=== PATIENT | female | born 1990 | race Caucasian/White ===

== ENCOUNTER 2018-06-29 12:56 | Emergency (ER) | payer OTHER, SELFPAY ==
[2018-06-29 12:56] VITALS: BP 142/69; PULSE 116; RESP 17; TEMP 37; O2SAT 97; BMI 29.2
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
== END 2018-06-29 13:52 | disposition home or self-care (01) ==
PROVIDERS: Emergency Provider Emergency Medicine; Family Provider Family Medicine; PCP Family Medicine
DX: S06.0X0A Concussion without loss of consciousness, initial encounter (principal); M54.2 Cervicalgia; M54.5 Low back pain; M25.561 Pain in right knee; V43.52XA Car driver injured in collision with other type car in traffic accident, initial encounter; Y93.9 Activity, unspecified; Y92.9 Unspecified place or not applicable; Y99.9 Unspecified external cause status; E66.9 Obesity, unspecified
CPT/HCPCS: 99282

== ENCOUNTER → 2019-05-03 11:24 | Outpatient (CLI) | payer OTHER, SELFPAY | PROVIDERS: Family Provider Family Medicine; PCP Family Medicine; Visit Provider Family Medicine | DX: N20.0 Calculus of kidney (principal) | CPT/HCPCS: 87086; 87088 ==

== ENCOUNTER → 2019-06-10 13:48 | Outpatient (CLI) | payer OTHER, SELFPAY ==
[2019-06-10 15:04] LABS: Absolute Lymphocyte Count 1.61 X10^3/uL (0.83-4.51); Absolute Neutrophil Count 3.6 X10^3/uL (2.0-7.7); Basophil# 0.02 X10^3/uL; Basophil% 0.3 % (0-1); Eosinophil# 0.14 X10^3/uL; Eosinophils% 2.4 % (0-5); Hematocrit 39.8 % (37-47); Hemoglobin 13.2 g/dL (12.0-15.0); Lymphocyte # 1.61 X10^3/ul (4.0); Lymphocyte % 27.9 % (19-41); Mean Corp Hgb Conc 33.2 g/dL (32-36); Mean Corpuscular Hgb 29.7 pg (27.0-32.0); Mean Corpuscular Volume 89.6 fL (81-99); Mean Platelet Vol. 10.1 fl (6.2-12.0); Monocyte# 0.41 X10^3/uL; Monocyte% 7.1 % (0-10); NRBC Flagged by Analyzer 0 % (0-5); Neutrophil # 3.59 X10^3/uL (2.7-7.7); Neutrophil % 62.1 % (47-70); Platelet Count 240 K/mm3 (150-450); RBC Distribution Width CV 12.6 % (11.6-14.6); RBC Distribution Width SD 40.8 fl (35.1-43.9); Red Blood Count 4.44 M/mm3 (4.2-5.4); White Blood Count 5.8 K/mm3 (4.4-11.0)
[2019-06-10 15:18] LABS: Erythrocyte Sedimentation Rate 3 mm/hr (0-20)
[2019-06-10 15:31] LABS: Vitamin B12 485 pg/mL (211-911); Vitamin D,25 Hydroxy 15.7 ng/mL (29.95-100.01)
[2019-06-10 15:34] LABS: ALB/GLOB Ratio 1.3 RATIO (0.9-2.4); AST(SGOT) 18 U/L (15-37); Alanine Aminotransfer ALT/SGPT 29 U/L (13-56); Albumin, Serum 4.2 g/dL (3.2-5.0); Alkaline Phosphatase 55 U/L (45-117); Anion Gap 10 (5-15); BUN 4 mg/dL (7-18); CRP < 2.90 mg/L (0.0-3.0); Calcium,Total 8.8 mg/dL (8.5-10.1); Chloride 106 mmol/L (98-107); EST Glomerular Filtration Rate 91 mL/min (>60); Est Glom Filt Rate - Afr Amer 110 mL/min (>60); Free T3 2.5 pg/mL (2.18-3.98); Globulin 3.3 g/dL (2.2-4.2); Glucose 105 mg/dL (74-106); Iron 42 ug/dL (50-170); Protein, Total 7.5 g/dL (6.4-8.2); Rheumatoid Factor < 10.0 IU/mL (<15); Sodium Level 142 mmol/L (136-145); T4 Free Direct 1.03 ng/dL (0.76-1.46)
[2019-06-12 20:07] LABS: Endomysial Antibody IgA Negative (Negative); Immunoglobulin A 142 mg/dL (87-352); Thyroid Peroxidase AB 11 IU/mL (0-34)
[2019-06-13 12:08] LABS: ANTINUCLEAR ANTIBODIES DIRECT Positive (Negative); Anti-Centromere B Ab <0.2 AI (0.0-0.9); Anti-Chromatin >8.0 AI (0.0-0.9); Anti-Jo <0.2 AI (0.0-0.9); Anti-Scleroderma-70 AB 2.6 AI (0.0-0.9); RNP Ab 0.3 AI (0.0-0.9); SJOGREN'S Anti-SS-A test < 0.2 AI (0.0-0.9); SJOGREN'S Anti-SS-B test < 0.2 AI (0.0-0.9); Smith Ab <0.2 AI (0.0-0.9)
[2019-06-13 12:41] LABS: Thyroglobulin Antibody < 1.0 IU/mL (0.0-0.9); t-Transglutaminase IgA <2 U/mL (0-3)
[2019-06-13 14:25] LABS: Anti-dsDNA Ab 2 IU/mL (0-9)
== END ==
LOC: BFHLAB 13:48
PROVIDERS: Family Provider Family Medicine; PCP Family Medicine; Visit Provider Family Medicine
DX: R53.83 Other fatigue (principal); M25.50 Pain in unspecified joint; M79.10 Myalgia, unspecified site; R23.2 Flushing; R19.7 Diarrhea, unspecified; E01.0 Iodine-deficiency related diffuse (endemic) goiter; E53.8 Deficiency of other specified B group vitamins; E61.1 Iron deficiency; R10.9 Unspecified abdominal pain
CPT/HCPCS: 36415; 80053; 82306; 82607; 82784; 83516; 83540; 84439; 84443; 84481; 85025; 85652; 86038; 86140; 86225; 86235; 86255; 86376; 86431; 86800

== ENCOUNTER → 2020-01-15 11:48 | Outpatient (CLI) | payer OTHER, MEDICAID, SELFPAY | PROVIDERS: PCP Family Medicine; Referring Provider Obstetrics & Gynecology; Visit Provider Obstetrics & Gynecology | DX: O36.63X0 Maternal care for excessive fetal growth, third trimester, not applicable or unspecified (principal); Z3A.00 Weeks of gestation of pregnancy not specified | CPT/HCPCS: 36415 ==

== ENCOUNTER → 2020-03-03 | Outpatient (CLI) | payer OTHER, MEDICAID, SELFPAY ==
[2020-03-03 16:16] LABS: ROM Internal Control Test YES-OK TO RESULT pt. (Internal QC); ROM Patient Test Negative (Negative)
== END | disposition home or self-care (01) ==
LOC: LABSPEC 15:44
PROVIDERS: PCP Family Medicine; Visit Provider Obstetrics & Gynecology
DX: Z34.83 Encounter for supervision of other normal pregnancy, third trimester (principal)
CPT/HCPCS: 84112

== ENCOUNTER 2020-03-09 07:05 | Inpatient (IN) | payer OTHER, MEDICAID, SELFPAY ==
[2020-03-09] VITALS (53 sets, daily range): BP systolic 86–130; BP diastolic 51–88; PULSE 70–181; TEMP 36.4–37.2; O2SAT 82–100; BMI 34.3
[2020-03-09] MEDS: Lactated Ringers 1,000 ML 200 ML IV ×3 (07:40→18:30)
[2020-03-09] MEDS: Cefazolin 2 GM in 0.9% Normal Saline 100 ML IV (08:00)
[2020-03-09] MEDS: Oxytocin 30 units/NS 500 ml 30 UNITS/500 ML IV.SOLN IV (08:00)
[2020-03-09 08:04] LABS: Absolute Lymphocyte Count 1.54 X10^3/uL (0.83-4.51); Absolute Neutrophil Count 6.5 X10^3/uL (2.0-7.7); Basophil# 0.01 X10^3/uL; Basophil% 0.1 % (0-1); Eosinophil# 0.07 X10^3/uL; Eosinophils% 0.8 % (0-5); Hematocrit 33.5 % (37-47); Hemoglobin 10.8 g/dL (12.0-15.0); Lymphocyte # 1.54 X10^3/ul (4.0); Lymphocyte % 17.3 % (19-41); Mean Corp Hgb Conc 32.2 g/dL (32-36); Mean Corpuscular Hgb 29.3 pg (27.0-32.0); Mean Corpuscular Volume 90.8 fL (81-99); Mean Platelet Vol. 10.7 fl (6.2-12.0); Monocyte# 0.79 X10^3/uL; Monocyte% 8.9 % (0-10); NRBC Flagged by Analyzer 0 % (0-5); Neutrophil # 6.47 X10^3/uL (2.7-7.7); Neutrophil % 72.5 % (47-70); Platelet Count 209 K/mm3 (150-450); RBC Distribution Width CV 14.6 % (11.6-14.6); RBC Distribution Width SD 47.8 fl (35.1-43.9); Red Blood Count 3.69 M/mm3 (4.2-5.4); White Blood Count 8.9 K/mm3 (4.4-11.0)
--- NOTE | 2020-03-09 08:14 | HP.PCM_ITS ---
- Problem List (1) 39 weeks gestation of Status: Acute History Date of Admission: 03/09/20 Final RITIKA: 03/10/20 Final RITIKA Source: US <20 weeks Gestational age: 39 Weeks and 6 Days History of this : This is a 29 year-old, G [5], P [3], at 39 weeks gestational age. Allergies adhesive tape Allergy (Verified 03/09/20 07:51) Rash codeine Adverse Reaction (Intermediate, Verified 03/09/20 07:50) Unknown hallucinations Penicillins Adverse Reaction (Verified 03/09/20 08:06) PT UNSURE OF REACTION Home Medications: Home Medications Ferrous Sulfate [Iron] 325 mg PO 03/09/20 Pnv No.95/Ferrous Fum/Folic AC [ Caplet] 1 ea PO 03/09/20 Smoking Status: Never smoker Alcohol: None Number of Fetus(es): 1 NST - FHR Rate Baby A Baseline: 140 Variability:: Moderate Accelerations:: 15 x 15 Decelerations:: None NST Reactive:: Yes FHR Category:: Category I Uterine Activity:: quiet History Past Pregnancies: PRIOR DELIVERY HISTORY ___ DEL DATE GEST LAB WT LB WT 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 Sep 17 40 7 7 8 Vagin Epidural No Mar 12 40 24 7 12 Vag Epidural No Nov 15 4 0 0 0 Sab None No Dec 16 40 11 8 0 Vag Epidural No Labs: Labs Mom's Labs & Results 03/09/20 03/09/20 03/09/20 07:40 07:40 07:58 WBC 8.9 RBC 3.69 L Hgb 10.8 L Hct 33.5 L MCV 90.8 MCH 29.3 MCHC 32.2 RDW Std Deviation 47.8 H RDW Coeff of Tony 14.6 Plt Count 209 MPV 10.7 Immature Gran % (Auto) 0.400 Neut % (Auto) 72.5 H Lymph % (Auto) 17.3 L [place] % (Auto) 8.9 Eos % (Auto) 0.8 Baso % (Auto) 0.1 Absolute Neuts (auto) 6.5 Absolute Lymphs (auto) 1.54 Nucleated RBC % 0 COVID-19 ([facility]) Pending Blood Type Pending Antibody Screen Pending Social History Alleged father Preston Kinney Smoking No Smoking Status Never smoker Expected Infant Delivery Method: Spontaneous Vaginal Number of Visits: 17 Review of Systems Constitutional: Denies: Chills, Fever, Weight Change HEENT: Denies: Head Aches, Sinus Congestion, Sinus Drainage Cardiovascular: Denies: Chest Pain, Palpitations Respiratory: Denies: Cough, Shortness of breath at rest, Sputum production Gastrointestinal: Denies: Abdominal Pain, Nausea, Vomiting Genitourinary: Denies: Dysuria Musculoskeletal: Denies: Joint Pain, Joint Tenderness Skin: Denies: Rash, Wounds Neurological: Denies: Numbness, Tingling, Focal weakness Psychiatric: Denies: Anxiety, Depression, Homicidal Ideations, Suicidal Ideations Hematologic/ Lymphatic: Denies: Easy Bruising, Easy Bleeding Physical Exam Vitals: Vital Signs Pulse BP 93 110/71 03/09/20 07:22 03/09/20 07:22 General: Alert, Oriented x3, No apparent distress HEENT: Atraumatic, Normocephalic. 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 Negative for: Vulvar lesions Estimated gestational size: Appropriate for gestational size Presentation: Cephalic Cervix Dilation (cm): 3 Station: -2 Effacement (%): 40 Assessment/Plan All Active Problems 39 weeks gestation of (Acute) Term of female (Acute) A/P: This is a 29 year-old, G [5], P [3], at 39.6 weeks gestational age. Pitocin IOL for polyhydramnios, EFW ~9lb+ Will plan to AROM after labor begins Plans epidural for pain management Expect
[2020-03-09] MEDS: fentaNYL-bupivacaine (epidural) 100 ML BAG EPIDURAL ×2 (13:30→18:07)
[2020-03-09] MEDS: Lactated Ringers 500 ML 999 ML IV (13:30)
[2020-03-09] MEDS: Cefazolin 1 GM/50 ML BAG IV (17:06)
--- NOTE | 2020-03-09 17:57 | PN.OBGYN_ITS ---
Patient Problems: Active and Suspected Problems 39 weeks gestation of (Acute) Subjective: Reports still having a lot of cervical pain/pressure with contractions. Abdomen is numb though and can move both legs. Pain is a 8/10. Objective: UC Q1.5-3m, SVE /-1 soft anterior. NST Category I FHR. - Physical Exam Vitals/I&O's: Vital Signs Temp Pulse BP Pulse Ox 97.6 F L 86 110/58 L 85 03/09/20 19:35 03/09/20 19:36 03/09/20 19:35 03/09/20 19:36 Weight: 90.718 kg Body Mass Index (BMI) 34.3 Intake and Output for Last 24 Hours 03/07/20 03/08/20 03/09/20 23:59 23:59 23:59 Intake Total 2802.43 / 2802.43 Balance 2802.43 / 2802.43 General: Alert, Oriented x3, Cooperative HEENT: Atraumatic, PERRLA, EOMI, Normocephalic Neck: Supple, No JVD, Negative Carotid Bruits Lungs: Clear to auscultation, Normal air movement Cardiovascular: Regular rate, No murmurs Abdomen: Bowel Sounds Present, Soft, Non Tender Extremities: No edema, Capillary Refill Less than 3 Seconds Skin: No rashes, No breakdown Musculoskeletal: No Tenderness to Palpation of Joints or Extremities Neurological: Cranial nerves II-XII grossly intact Psych/Mental Status: Normal Affect, Appropriate Laboratory Results 03/09/20 07:40: WBC 8.9, RBC 3.69 L, Hgb 10.8 L, Hct 33.5 L, MCV 90.8, MCH 29.3, MCHC 32.2, RDW Std Deviation 47.8 H, RDW Coeff of Tony 14.6, Plt Count 209, MPV 10.7, Immature Gran % (Auto) 0.400, Neut % (Auto) 72.5 H, Lymph % (Auto) 17.3 L, [place] % (Auto) 8.9, Eos % (Auto) 0.8, Baso % (Auto) 0.1, Absolute Neuts (auto) 6.5, Absolute Lymphs (auto) 1.54, Nucleated RBC % 0 03/09/20 07:40: Blood Type A NEGATIVE, Antibody Screen NEGATIVE 03/09/20 07:58: COVID-19 ([facility]) Not Detected Current Medications Acetaminophen (Tylenol) 325 - 650 mg PO Q4H PRN PRN PRN Reason: Pain Score 1-3/10 Al Hydroxide/Mg Hydroxide (Mylanta Ii) 15 - 30 ml PO Q4H PRN PRN PRN Reason: INDIGESTION Citric Acid/Sodium Citrate (Bicitra) 30 ml PO X1 PRN PRN Reason: Section Ephedrine Sulfate () 10 mg IV Q10M PRN PRN Reason: hypotension Ephedrine Sulfate () 10 mg IM Q30M PRN PRN Reason: hypotension Fentanyl Citrate (Sublimaze (100mcg Ampule)) 25 - 50 mcg IV Q2H PRN PRN PRN Reason: Pain Score 4-10/10 Fentanyl/Bupivacaine/Sodium Chlor () 0 ml EPIDURAL UD [facility], 1928[facility]1983; Protocol Last Admin: 03/09/20 18:07 Dose: 100 ml Documented by: Lactated Ringer's () 500 mls @ 999 mls/hr IV .Q31M PRN PRN Reason: Epidural Last Infusion: 03/09/20 14:00 Dose: Infused Documented by: Lactated Ringer's () 500 mls @ 999 mls/hr IV .Q31M PRN PRN Reason: Corrective Measures Lactated Ringer's () 1,000 mls @ 50 mls/hr IV .Q20H [facility], 1928[facility]1983 Last Admin: 03/09/20 18:30 Dose: 200 mls/hr Documented by: Oxytocin/Sodium Chloride () 30 units in 500 mls @ 2 mls/hr IV .Q250H [facility], 1928[facility]1983 Last Infusion: 03/09/20 18:39 Dose: 10 mls/hr Documented by: Naloxone HCl 4 mg/ Dextrose 504 mls @ 0 mls/hr IV .Q0M PRN; Protocol PRN Reason: To maintain Resp. rate >10 Cefazolin Sodium () 1 gm in 50 mls @ 100 mls/hr IV Q8H [facility]1983 Last Infusion: 03/09/20 17:36 Dose: Infused Documented by: Naloxone HCl (Narcan) 0.02 mg IV Q1M PRN PRN Reason: RR< 10 AND PT UNRESPONSIVE Ondansetron HCl (Zofran) 4 mg IV Q4H PRN PRN PRN Reason: NAUSEA Prochlorperazine Edisylate (Compazine Iv) 10 mg IV Q6H PRN PRN PRN Reason: NAUSEA Sodium Chloride () 10 - 40 ml IV X1 PRN PRN Reason: SALINE FLUSH Medical Necessity - Tobacco Use Smoking Status: Never smoker Assessment/Plan All Active Problems 39 weeks gestation of (Acute) Term of female (Acute) A/P: Active labor Pain uncontrolled with epidural, anesthesia to come reassess Continue Pitocin IOL Expect
[2020-03-09] MEDS: Oxytocin 30 units/NS 500 ml 30 UNITS/500 ML IV.SOLN 334 UNITS IV (21:20)
--- NOTE | 2020-03-09 21:52 | OP.PCM_ITS ---
Problem List (1) 39 weeks gestation of Status: Acute Vaginal Delivery Maternal Presentation: Medically Indicated Induction Method of Induction: Pitocin Medical Reason for Induction: - - polyhydramnios Amniotic Membrane Rupture Type: Artificial Amniotic Fluid Description: Clear Final RITIKA: 03/10/20 Final RITIKA Source: US <20 weeks Gestational age: 39 Weeks and 6 Days Date of Procedure: 03/09/20 Pre-Operative Diagnosis: IOL Post-Operative Diagnosis: S/P Surgery/ Procedure Performed: Spontaneous Vaginal Delivery Type of Anesthesia: Epidural, Local with 1% lidocaine Description of Procedure: Patient was FD at +2 station with spontaneous urge to push. She pushed well over 2.5 hours to deliver head in OA to KYAW, followed by snug shoulders and b shasha. The infant was placed on the maternal abdomen. The cord was doubly clamped and cut by FOB under CNM supervision at approximately 4 minutes of life and further attended by nursery personnel. Cord blood was obtained. With gentle traction the placenta delivered spontaneously and appeared intact on inspection with a three vessel cord. First degree perineal laceration noted. Repaired with 3.0 rapide. Good hemostasis noted. EBL 300. Apgars 7/9. Sponge and needle counts correct x 2. Attending MD: Dr. Ramirez Presentation: Vertex, KYAW Placental Delivery Description: Spontaneous Placenta Disposition: [facility] Cord Vessel Description: 3 Vessels Cord Entanglement: None Estimated Blood Loss: 300 Infant A gender: Female (1 minute): 7 (5 minute): 9 Episiotomy Description: None Laceration: Periurethral Extnsion/lac, 1st degree Medications given after delivery: IV Pitocin
--- NOTE | 2020-03-09 21:57 | DCINST_ITS ---
Discharge Diet: No Restrictions Discharge Activity: Return to Normal Activity, May not drive while taking narcotic pain medications., May Shower May resume sexual activity in: 4-6 weeks Additional Activity Instructions:: Nothing in the vagina for 4-6 weeks. You may return to work/school in 6 weeks. Call your doctor if your incision/area has: Continuous Slow Oozing, Sudden Increased Bleeding, Increased Pain/ Swelling, Increased Redness, Foul Smelling Discharge Additional Instructions: If you experience any of the following, contact your healthcare provider. * Bleeding that soaks a pad every hour for 2 hours * Fever 100.4 or higher * Unrelieved incision or abdominal pain * Swelling, redness, discharge or bleeding from your incision or episiotomy site * Your incision begins to separate * Problems urinating (including inability to urinate or burning while urinating). * Visual changes * Severe headache * Flu-like symptoms * Pain or redness in one of both of your breasts * Pain, warmth, tenderness or swelling in your legs, especially the calf area * Frequent nausea and vomiting * Symptoms of depression or anxiety If you experience any of the following, call 911 or go to the nearest Emergency Room. * Chest pain * Problems breathing * Seizure activity * Partial or complete paralysis of a body part, slurred speech, weakness or drooping of the face, or a sudden inability to walk or hold your balance Allergies/Adverse Reactions: Allergies adhesive tape Allergy (Verified 03/09/20 07:51) Rash codeine Adverse Reaction (Intermediate, Verified 03/09/20 07:50) Unknown hallucinations Penicillins Adverse Reaction (Verified 03/09/20 08:06) PT UNSURE OF REACTION Medications to take at Discharge Ferrous Sulfate [Iron] 325 mg PO 03/09/20 Pnv No.95/Ferrous Fum/Folic AC [ Caplet] 1 ea PO 03/09/20 Please Follow Up With: Nicole Means CNM When: Call to make an appointment with your CNM in 2 weeks for telehealth visit and 6 weeks for a routine PP visit. If any signs of depression to call immediately. Primary Care Physician: Anya Blake DO [Primary Care Provider] - Test Results: Test results from this visit will be discussed in further detail at your follow- up appointment, if applicable.
[2020-03-09] MEDS: Ibuprofen 600 MG Tablet PO (22:40)
[2020-03-09] MEDS: Acetaminophen 500 MG Tablet 1000 MG PO (23:50)
[2020-03-10] VITALS (28 sets, daily range): BP systolic 108–123; BP diastolic 59–83; PULSE 69–91; RESP 16–18; TEMP 36.3–37.1; O2SAT 93–100
--- NOTE | 2020-03-10 00:15 | NURSING ---
Report received from Jeanine COBURN, taking over pt and care at this time.
--- NOTE | 2020-03-10 02:57 | NURSING ---
Pt called RN into room c/o BOX 04/13 pain. Pt stated epidural was difficult to place and BOX decreases when laying flat. Discussed spinal headache s/sx with pt. Offered pt PO caffeine at this time and pt plans to rest laying flat to see if this alleviates BOX. Pt instructed to call if needing additional pain medication. No pain medication due at this time.
[2020-03-10] MEDS: Ibuprofen 600 MG Tablet PO ×3 (05:50→17:33)
--- NOTE | 2020-03-10 07:00 | NURSING ---
Pt states BOX 0/10 when resting in bed.
[2020-03-10] MEDS: Acetaminophen 500 MG Tablet 1000 MG PO (08:05)
[2020-03-10] MEDS: Senna/Docusate Sodium 1 Tablet PO (08:05)
--- NOTE | 2020-03-10 08:50 | PCM.PN.OB ---
Patient Problems: Active and Suspected Problems 39 weeks gestation of (Acute) Subjective: No vaginal pain, but has a pretty bad headache. Has tried Tylenol and Motrin. Abdominal cramping moderate with . well. Objective: VSS. Fundus is firm, midline at u. Lochia rubra moderate. - Physical Exam Vitals/I&O's: Vital Signs Temp Pulse Resp BP Pulse Ox 97.4 F L 75 18 116/76 98 03/10/20 08:11 03/10/20 08:11 03/10/20 08:11 03/10/20 08:11 03/10/20 08:11 Oxygen Delivery Method Room Air Weight: 90.718 kg Body Mass Index (BMI) 34.3 Intake and Output for Last 24 Hours 03/08/20 03/09/20 03/10/20 23:59 23:59 23:59 Intake Total 3541.93 / 3541.93 333 / 333 Output Total 1700 / 1700 Balance 3541.93 / 3541.93 -1367 / -1367 General: Alert, Oriented x3, Cooperative HEENT: Atraumatic, PERRLA, EOMI, Normocephalic Neck: Supple, No JVD, Negative Carotid Bruits Lungs: Clear to auscultation, Normal air movement Cardiovascular: Regular rate, No murmurs Abdomen: Bowel Sounds Present, Soft, Non Tender Extremities: No edema, Capillary Refill Less than 3 Seconds Skin: No rashes, No breakdown Musculoskeletal: No Tenderness to Palpation of Joints or Extremities Neurological: Cranial nerves II-XII grossly intact Psych/Mental Status: Normal Affect, Appropriate Laboratory Results 03/09/20 07:40: Blood Type A NEGATIVE, Antibody Screen NEGATIVE 03/09/20 07:58: COVID-19 ([facility]) Not Detected Current Medications Acetaminophen (Tylenol) 1,000 mg PO Q8H PRN PRN PRN Reason: Pain Score 1-3/10 Last Admin: 03/10/20 08:05 Dose: 1,000 mg Documented by: Bisacodyl (Dulcolax) 10 mg RECTAL UD PRN PRN Reason: If no BM Hydrocortisone (Hytone) 1 applic TOPICAL TID PRN PRN; Protocol PRN Reason: Discomfort Ibuprofen (Motrin) 600 mg PO Q6H [facility] Last Admin: 03/10/20 05:50 Dose: 600 mg Documented by: Methylergonovine Maleate (Methergine) 0.2 mg IM X1 PRN PRN Reason: Excess bleeding/uterine atony Ondansetron HCl (Zofran) 4 mg IV Q4H PRN PRN PRN Reason: Nausea Senna/Docusate Sodium (Senokot-S, Peg-Colace) 1 - 2 tablet PO DAILY PRN PRN PRN Reason: Constipation Last Admin: 03/10/20 08:05 Dose: 2 tablet Documented by: Simethicone (Mylicon) 80 mg PO PCHS PRN PRN Reason: Indigestion/Stomach pain Sodium Chloride () 5 - 15 ml IV UD PRN PRN Reason: SALINE FLUSH Throat Lozenges (Dermoplast (Sp)) 1 applic TOPICAL 4X/DAY PRN PRN; Protocol PRN Reason: Pain/Inflammation Medical Necessity - Tobacco Use Smoking Status: Never smoker Assessment/Plan All Active Problems 39 weeks gestation of (Acute) Term of female (Acute) A/P: S/P Day #1 Normal involution Headache s/p delivery with epidural, discussed option of blood patch if medication is not helping Will discharge tomorrow since 24H isn't up until HS
[2020-03-10] MEDS: Acetaminophen/Butalbital/Caffe 1 Tablet PO (12:00)
[2020-03-10] MEDS: 0.9% Saline Lock 10 ML Syringe IV (16:10)
[2020-03-11 01:21] VITALS: BP 109/59; PULSE 72; RESP 16; TEMP 36.3
[2020-03-11 01:22] VITALS: BP 109/59; PULSE 72
[2020-03-11] MEDS: Acetaminophen 500 MG Tablet 1000 MG PO ×2 (01:26→09:36)
[2020-03-11] MEDS: Ibuprofen 600 MG Tablet PO (07:03)
--- NOTE | 2020-03-11 07:26 | PCM.PN.OB ---
Patient Problems: Active and Suspected Problems 39 weeks gestation of (Acute) Subjective: Headache is a lot better today. Yesterday after blood patch it completely went away, but today it is back a little. Just took Motrin and will take Tylenol. is going well with a good supply of colostrum already. Has been urinating fine and passing flatus. Would like to discharge today. Objective: VSS. Fundus is firm, midline, u/1. Lochia rubra moderate. - Physical Exam Vitals/I&O's: Vital Signs Temp Pulse Resp BP Pulse Ox 97.4 F L 72 16 109/59 L 99 03/11/20 01:21 03/11/20 01:22 03/11/20 01:21 03/11/20 01:22 03/10/20 16:55 Oxygen Delivery Method Room Air Weight: 90.718 kg Body Mass Index (BMI) 34.3 Intake and Output for Last 24 Hours 03/09/20 03/10/20 03/11/20 23:59 23:59 23:59 Intake Total 3541.93 / 3541.93 333 / 333 Output Total 1700 / 1700 Balance 3541.93 / 3541.93 -1367 / -1367 General: Alert, Oriented x3, Cooperative HEENT: Atraumatic, PERRLA, EOMI, Normocephalic Neck: Supple, No JVD, Negative Carotid Bruits Lungs: Clear to auscultation, Normal air movement Cardiovascular: Regular rate, No murmurs Abdomen: Bowel Sounds Present, Soft, Non Tender Extremities: No edema, Capillary Refill Less than 3 Seconds Skin: No rashes, No breakdown Musculoskeletal: No Tenderness to Palpation of Joints or Extremities Neurological: Cranial nerves II-XII grossly intact Psych/Mental Status: Normal Affect, Appropriate Current Medications Acetaminophen (Tylenol) 1,000 mg PO Q8H PRN PRN PRN Reason: Pain Score 1-3/10 Last Admin: 03/11/20 01:26 Dose: 1,000 mg Documented by: Acetaminophen/Butalbital/Caffeine (Fioricet) 1 tablet PO Q4H PRN PRN PRN Reason: HEADACHE Last Admin: 03/10/20 12:00 Dose: 1 tablet Documented by: Bisacodyl (Dulcolax) 10 mg RECTAL UD PRN PRN Reason: If no BM Hydrocortisone (Hytone) 1 applic TOPICAL TID PRN PRN; Protocol PRN Reason: Discomfort Ibuprofen (Motrin) 600 mg PO Q6H [facility] Last Admin: 03/11/20 07:03 Dose: 600 mg Documented by: Methylergonovine Maleate (Methergine) 0.2 mg IM X1 PRN PRN Reason: Excess bleeding/uterine atony Ondansetron HCl (Zofran) 4 mg IV Q4H PRN PRN PRN Reason: Nausea Senna/Docusate Sodium (Senokot-S, Peg-Colace) 1 - 2 tablet PO DAILY PRN PRN PRN Reason: Constipation Last Admin: 03/10/20 08:05 Dose: 2 tablet Documented by: Simethicone (Mylicon) 80 mg PO PCHS PRN PRN Reason: Indigestion/Stomach pain Sodium Chloride () 5 - 15 ml IV UD PRN PRN Reason: SALINE FLUSH Last Admin: 03/10/20 16:10 Dose: 10 ml Documented by: Throat Lozenges (Dermoplast (Sp)) 1 applic TOPICAL 4X/DAY PRN PRN; Protocol PRN Reason: Pain/Inflammation Medical Necessity - Tobacco Use Smoking Status: Never smoker Assessment/Plan All Active Problems 39 weeks gestation of (Acute) Term of female (Acute) A/P: S/P Day #2 Blood patch 03-10-2020 for headache, understands if worsening again to call mother Normal involution and course To discharge home today Reviewed signs of depression Has 2 week telehealth PP visit and 6 week in person PP visit already scheduled
[2020-03-11 09:20] VITALS: BP 121/74; PULSE 76; RESP 14; TEMP 31.8
[2020-03-11 09:23] VITALS: BP 121/74; PULSE 76
[2020-03-11] MEDS: Caffeine 200 MG Tablet 400 MG PO (10:58)
== END 2020-03-11 13:00 | disposition home or self-care (01) | DRG 807 ==
PROVIDERS: Admitting Provider Obstetrics & Gynecology; PCP Family Medicine; Visit Provider Obstetrics & Gynecology
DX: O40.3XX0 Polyhydramnios, third trimester, not applicable or unspecified (principal); O89.4 Spinal and epidural anesthesia-induced headache during the puerperium; Z3A.39 39 weeks gestation of pregnancy; Z37.0 Single live birth
CPT/HCPCS: 59025; 59050; 85025; 86850; 86900; 86901; 87635; 99218; G2023; J7120; A4216; G0378; U0003

== ENCOUNTER 2020-03-12 14:11 | Day surgery (SDC) | payer OTHER, MEDICAID, SELFPAY ==
[2020-03-09 07:37] VITALS: BMI 34.3
[2020-03-12 15:30] VITALS: BP 109/91; PULSE 109; RESP 16; O2SAT 98
[2020-03-12 15:35] VITALS: BP 110/76; PULSE 76; RESP 16; O2SAT 99
[2020-03-12 15:40] VITALS: BP 91/77; PULSE 58; RESP 16
[2020-03-12 15:46] VITALS: BP 108/78; PULSE 58; RESP 16; O2SAT 98
== END 2020-03-12 17:04 | disposition home or self-care (01) ==
LOC: SDC 14:14 → AC 14:16
PROVIDERS: PCP Family Medicine; Referring Provider Anesthesiology; Visit Provider Anesthesiology
PROC: 3E0R3GC Introduction of Other Therapeutic Substance into Spinal Canal, Percutaneous Approach (ICD-10-PCS; CPT 62273; principal; 2020-03-12 14:25)
DX: O89.4 Spinal and epidural anesthesia-induced headache during the puerperium (principal)
CPT/HCPCS: 62273; J7120

== ENCOUNTER → 2020-08-18 13:28 | Outpatient (CLI) | payer OTHER, MEDICAID, SELFPAY ==
[2020-03-09 07:37] VITALS: BMI 34.3
[2020-08-18 15:28] LABS: Absolute Lymphocyte Count 1.81 X10^3/uL (0.83-4.51); Absolute Neutrophil Count 4.3 X10^3/uL (2.0-7.7); Basophil# 0.03 X10^3/uL; Basophil% 0.4 % (0-1); Eosinophil# 0.07 X10^3/uL; Hematocrit 41.5 % (37-47); Hemoglobin 13.2 g/dL (12.0-15.0); Lymphocyte # 1.81 X10^3/ul (4.0); Lymphocyte % 26.7 % (19-41); Mean Corp Hgb Conc 31.8 g/dL (32-36); Mean Corpuscular Hgb 28.2 pg (27.0-32.0); Mean Corpuscular Volume 88.7 fL (81-99); Mean Platelet Vol. 10.1 fl (6.2-12.0); Monocyte# 0.57 X10^3/uL; Monocyte% 8.4 % (0-10); NRBC Flagged by Analyzer 0 % (0-5); Neutrophil # 4.29 X10^3/uL (2.7-7.7); Neutrophil % 63.2 % (47-70); Platelet Count 275 K/mm3 (150-450); RBC Distribution Width CV 12.8 % (11.6-14.6); RBC Distribution Width SD 41.6 fl (35.1-43.9); Red Blood Count 4.68 M/mm3 (4.2-5.4); White Blood Count 6.8 K/mm3 (4.4-11.0)
[2020-08-18 15:57] LABS: ALB/GLOB Ratio 1.1 RATIO (0.9-2.4); AST(SGOT) 21 U/L (15-37); Alanine Aminotransfer ALT/SGPT 34 U/L (13-56); Albumin, Serum 4.1 g/dL (3.2-5.0); Alkaline Phosphatase 74 U/L (45-117); Anion Gap 6 (5-15); BUN 5 mg/dL (7-18); BUN/Creat Ratio 6.6 RATIO (10-20); Chloride 105 mmol/L (98-107); Creatinine, Serum 0.76 mg/dL (0.55-1.02); EST Glomerular Filtration Rate 95 mL/min (>60); Est Glom Filt Rate - Afr Amer 115 mL/min (>60); Free T3 3.2 pg/mL (2.18-3.98); Globulin 3.6 g/dL (2.2-4.2); Glucose 95 mg/dL (74-106); Potassium 3.9 mmol/L (3.5-5.1); Protein, Total 7.7 g/dL (6.4-8.2); Sodium Level 140 mmol/L (136-145); T4 Free Direct 1.09 ng/dL (0.76-1.46); Thyroid Stim Hormone (TSH) 1.06 uIU/mL (0.358-3.74)
== END ==
PROVIDERS: PCP Family Medicine; Visit Provider Family Medicine
DX: R03.0 Elevated blood-pressure reading, without diagnosis of hypertension (principal); R00.2 Palpitations; E03.9 Hypothyroidism, unspecified
CPT/HCPCS: 36415; 80053; 84439; 84443; 84481; 85025

== ENCOUNTER → 2020-08-24 12:52 | Outpatient (CLI) | payer OTHER, MEDICAID, SELFPAY ==
[2020-03-09 07:37] VITALS: BMI 34.3
--- NOTE | 2020-08-24 12:54 | CT_ITS ---
STUDY: CT SOFT TISSUE NECK WITH CONTRAST REASON FOR EXAM: Female, 30 years old. LEFT SIDE NECK MASS X 1 YR, SOMETIMES PAINFUL/SWELLING RADIATION DOSAGE (If Supplied By Facility): CTDIvol = ( 18.72 ) mGy, DLP = ( 579.99 ) mGycm TECHNIQUE: The patient was scanned in a multi-detector CT scanner. High resolution transaxial imaging was performed following intravenous administration of IV 75mL Isovue-370. Sagittal and coronal images were reconstructed. Individualized dose optimization techniques were used for this CT. COMPARISON: None. FINDINGS: Normal bilateral parotid glands. 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 Normal bilateral parapharyngeal spaces. Normal bilateral carotid spaces. Normal bilateral sublingual and submandibular glands and spaces. Normal visualized nasopharynx. Normal retropharyngeal space. Normal perivertebral space. Normal visualized bilateral faucial tonsils. The visualized tongue, tongue base and oropharynx are normal. The visualized cervical lymph nodes (levels I-) are within normal size limits, and maintain normal morphology. There is no demonstrated solid or cystic mass lesion. There is no abnormal contrast enhancement. Normal epiglottis, bilateral vallecula and hypopharynx. The pre-epiglottic and paraglottic adipose spaces are normal. Normal visualized bilateral piriform sinuses, aryepiglottic folds, vocal cords, and arytenoid-cricoid articulations. Normal subglottic trachea. There is a 3.4 mm cystic nodule in the upper pole of the left lobe of the thyroid. A 4.1 mm hypodense nodules also seen in the lower pole of the left lobe of the thyroid. Normal visualized pulmonary apices. Normal visualized paranasal sinuses. Normal visualized cervical spine. CT/Soft Tissue Neck WITH Contrast IMPRESSION: Normal enhanced CT examination of the soft tissues of the neck. Electronically Signed: Darrell Copeland, at 15:10 EST , Service support ,
== END ==
PROVIDERS: PCP Family Medicine; Referring Provider Otolaryngology; Visit Provider Otolaryngology
DX: R22.1 Localized swelling, mass and lump, neck (principal)
CPT/HCPCS: 70491; Q9967

== ENCOUNTER → 2020-12-25 | Outpatient (CLI) | payer OTHER, MEDICAID, SELFPAY ==
[2020-03-09 07:37] VITALS: BMI 34.3
[2020-12-25 21:08] LABS: Probe Check PASS; Specimen Processing Control PASS
== END | disposition home or self-care (01) ==
PROVIDERS: PCP Family Medicine; Referring Provider Family Medicine; Visit Provider Family Medicine
DX: Z20.828 Contact with and (suspected) exposure to other viral communicable diseases (principal)
CPT/HCPCS: 87635; U0002

== ENCOUNTER → 2022-04-11 | Outpatient (CLI) | payer OTHER, MEDICAID, SELFPAY ==
--- NOTE | 2022-04-11 13:27 | US_ITS ---
INDICATION: PAIN -- LT ABD PAIN EXAMINATION: Ultrasound US Pelvis Non OB and Vascular Doppler Complete TECHNIQUE: Transabdominal pelvic ultrasound was performed. Grayscale, spectral waveform, and color flow Doppler evaluation of the adnexa. COMPARISON: None. FINDINGS: UTERUS: Anteverted. The uterus measures 11.8 x 6.4 x 3.4 cm. There is no uterine mass. The endometrial stripe measures 9 mm in AP diameter which is within normal limits. RIGHT OVARY: 2.7 x 2.3 x 1.7 cm. Non-enlarged, normal echogenicity. There is normal arterial inflow and venous outflow present in the right ovary. LEFT OVARY: 3.2 x 2.7 x 1.8 cm. Mildly complex hemorrhagic cyst in the left ovary measuring 1.9 x 1.8 x 1.5 cm. There is normal arterial inflow and venous outflow present in the left ovary. FREE FLUID: None. US/Pelvic (Non ) IMPRESSION: Small hemorrhagic cyst in the left ovary measuring 1.9 cm. No follow-up necessary. Otherwise unremarkable exam. Electronically Signed: Negrito Santos MD at 4:57 EDT ,
== END | disposition home or self-care (01) ==
LOC: US 13:25
PROVIDERS: PCP Family Medicine; Referring Provider Family Medicine; Visit Provider Family Medicine
DX: N83.202 Unspecified ovarian cyst, left side (principal); R10.2 Pelvic and perineal pain
CPT/HCPCS: 76856; 93976

== ENCOUNTER → 2022-10-18 | Outpatient (CLI) | payer OTHER, MEDICAID, SELFPAY ==
[2022-10-18 15:40] LABS: Absolute Lymphocyte Count 1.75 X10^3/uL (0.83-4.51); Absolute Neutrophil Count 3.7 X10^3/uL (2.0-7.7); Basophil# 0.04 X10^3/uL; Basophil% 0.7 % (0-1); Eosinophil# 0.13 X10^3/uL; Eosinophils% 2.1 % (0-5); Hematocrit 40.7 % (37-47); Hemoglobin 13.4 g/dL (12.0-15.0); Lymphocyte # 1.75 X10^3/ul (0.83-4.51); Lymphocyte % 28.8 % (19-41); Mean Corp Hgb Conc 32.9 g/dL (32-36); Mean Corpuscular Volume 91.3 fL (81-99); Mean Platelet Vol. 10.2 fl (6.2-12.0); Monocyte# 0.41 X10^3/uL; Monocyte% 6.7 % (0-10); NRBC Flagged by Analyzer 0 % (0-5); Neutrophil # 3.73 X10^3/uL (2.7-7.7); Neutrophil % 61.4 % (47-70); Platelet Count 265 K/mm3 (150-450); RBC Distribution Width CV 13.1 % (11.6-14.6); RBC Distribution Width SD 43.3 fl (35.1-43.9); Red Blood Count 4.46 M/mm3 (4.2-5.4); White Blood Count 6.1 K/mm3 (4.4-11.0)
[2022-10-18 16:03] LABS: Vitamin D,25 Hydroxy 16.8 ng/mL
[2022-10-18 16:33] LABS: ALB/GLOB Ratio 1.2 RATIO (0.9-2.4); AST(SGOT) 21 U/L (15-37); Alanine Aminotransfer ALT/SGPT 28 U/L (13-56); Albumin, Serum 4.4 g/dL (3.2-5.0); Alkaline Phosphatase 51 U/L (45-117); Anion Gap 9 (5-15); BUN 9 mg/dL (7-18); BUN/Creat Ratio 11.3 RATIO (10-20); Chloride 103 mmol/L (98-107); EST Glomerular Filtration Rate 88 mL/min (>60); Est Glom Filt Rate - Afr Amer 107 mL/min (>60); Estradiol 74.2 pg/mL; Ferritin 9 ng/mL (8-252); Free T3 2.4 pg/mL (2.18-3.98); Globulin 3.6 g/dL (2.2-4.2); Glucose 83 mg/dL (74-106); Iron 51 ug/dL (50-170); Potassium 4.1 mmol/L (3.5-5.1); Sodium Level 138 mmol/L (136-145); T4 Free Direct 0.92 ng/dL (0.76-1.46); Thyroid Stim Hormone (TSH) 1.06 uIU/mL (0.358-3.74)
[2022-10-20 16:09] LABS: Thyroid Peroxidase AB < 9 IU/mL (0-34)
[2022-10-21 18:47] LABS: Thyroglobulin Antibody < 1.0 IU/mL (0.0-0.9)
== END | disposition home or self-care (01) ==
PROVIDERS: PCP Family Medicine; Visit Provider Family Medicine
DX: E03.9 Hypothyroidism, unspecified (principal); N93.8 Other specified abnormal uterine and vaginal bleeding; R53.83 Other fatigue
CPT/HCPCS: 36415; 80053; 82306; 82627; 82670; 82728; 83540; 84439; 84443; 84481; 85025; 86376; 86800; 82626

== ENCOUNTER → 2023-01-26 | Outpatient (CLI) | payer OTHER, MEDICAID, SELFPAY ==
[2023-01-26 12:37] LABS: Vitamin B12 506 pg/mL (211-911)
== END | disposition home or self-care (01) ==
LOC: BFHLAB 10:40
PROVIDERS: PCP Family Medicine; Referring Provider Family Medicine; Visit Provider Family Medicine
DX: E55.9 Vitamin D deficiency, unspecified (principal)
CPT/HCPCS: 36415; 82607

== ENCOUNTER → 2023-06-07 | Outpatient (CLI) | payer OTHER, MEDICAID, SELFPAY ==
[2023-06-07 12:36] LABS: Absolute Lymphocyte Count 1.69 X10^3/uL (0.83-4.51); Absolute Neutrophil Count 3.9 X10^3/uL (2.0-7.7); Basophil# 0.03 X10^3/uL; Basophil% 0.5 % (0-1); Eosinophil# 0.15 X10^3/uL; Eosinophils% 2.4 % (0-5); Hematocrit 40.1 % (37-47); Hemoglobin 13.4 g/dL (12.0-15.0); Lymphocyte # 1.69 X10^3/ul (0.83-4.51); Mean Corp Hgb Conc 33.4 g/dL (32-36); Mean Corpuscular Hgb 30.2 pg (27.0-32.0); Mean Corpuscular Volume 90.3 fL (81-99); Monocyte# 0.43 X10^3/uL; Monocyte% 6.9 % (0-10); NRBC Flagged by Analyzer 0 % (0-5); Neutrophil # 3.94 X10^3/uL (2.7-7.7); Neutrophil % 62.9 % (47-70); Platelet Count 265 K/mm3 (150-450); RBC Distribution Width CV 12.6 % (11.6-14.6); RBC Distribution Width SD 41.4 fl (35.1-43.9); Red Blood Count 4.44 M/mm3 (4.2-5.4); White Blood Count 6.3 K/mm3 (4.4-11.0)
[2023-06-07 13:04] LABS: Vitamin B12 451 pg/mL (211-911); Vitamin D,25 Hydroxy 34.3 ng/mL
[2023-06-07 13:14] LABS: ALB/GLOB Ratio 1.1 RATIO (0.9-2.4); AST(SGOT) 23 U/L (15-37); Alanine Aminotransfer ALT/SGPT 31 U/L (13-56); Albumin, Serum 3.9 g/dL (3.2-5.0); Alkaline Phosphatase 57 U/L (45-117); Anion Gap 5 (5-15); BUN 7 mg/dL (7-18); BUN/Creat Ratio 8.3 RATIO (10-20); Chloride 106 mmol/L (98-107); Creatinine, Serum 0.84 mg/dL (0.55-1.02); EST Glomerular Filtration Rate 83 mL/min (>60); Est Glom Filt Rate - Afr Amer 100 mL/min (>60); Ferritin 9 ng/mL (8-252); Free T3 2.4 pg/mL (2.18-3.98); Globulin 3.6 g/dL (2.2-4.2); Glucose 89 mg/dL (74-106); Iron 150 ug/dL (50-170); Potassium 3.9 mmol/L (3.5-5.1); Protein, Total 7.5 g/dL (6.4-8.2); Sodium Level 137 mmol/L (136-145); T4 Free Direct 1.08 ng/dL (0.76-1.46)
== END | disposition home or self-care (01) ==
LOC: BFHLAB 09:35
PROVIDERS: PCP Family Medicine; Referring Provider Family Medicine; Visit Provider Family Medicine
DX: E55.9 Vitamin D deficiency, unspecified (principal); D50.9 Iron deficiency anemia, unspecified; R53.83 Other fatigue; E53.8 Deficiency of other specified B group vitamins
CPT/HCPCS: 36415; 80053; 82306; 82607; 82728; 83540; 84439; 84443; 84481; 85025

== ENCOUNTER → 2023-09-14 | Outpatient (CLI) | payer OTHER, MEDICAID, SELFPAY ==
--- NOTE | 2023-09-14 12:47 | RAD_ITS ---
INDICATION: LEFT VILLAREAL PAIN EXAMINATION/TECHNIQUE: X-RAY - LEFT XR Tibia/Fibula 2 Views 2 VIEWS COMPARISON: No relevant prior comparison study available FINDINGS: SOFT TISSUES: No soft tissue swelling or gas. No radiopaque foreign body. BONES/JOINTS: No acute fracture or subluxation.. Normal alignment. Preservation of the joint space.. No sclerotic or destructive changes observed. RAD/Tibia & Fibula 2 Views IMPRESSION: Unremarkable examination. Electronically Signed: Chandrakant Dixon MD at 13:04 EST ,
--- OUTSIDE RECORDS SUMMARY | 2023-09-14 13:12 | XMS RPT_ITS | CCD ---
Author Name Unknown Address [address] [place] [address] Organization [facility] Care Team Providers Care Baker Test Name Role Phone Anya Stafford DO Primary Care Provider [phone] Shimon Patrick Unavailable [phone] ANYA STAFFORD Primary Care Unavailable Allergies Allergy Classification Reported Allergen(s) Allergy Type Date of Onset Reaction(s) Facility (3 sources) Codeine; Translations: [CODEINE] Drug Allergy 11-25-2010 Mental Status Change [facility] Work Phone: (3 sources) Penicillins; Translations: [PENICILLINS] Drug Allergy 06-19-2013 Other: See Comments [facility] Work Phone: Medications Completed/Discontinued Medications Medication Drug Class(es) Dates Sig (Normalized) Sig (Original) DULoxetine 30 mg delayed release oral capsule (1 source) Serotonin and Norepinephrine Reuptake Inhibitor Start: 05-29-2023 take 1 capsule by mouth once DULoxetine (CYMBALTA) 30 mg capsule Take 1 capsule by mouth every afternoon. 0 05/29/2023 Active Problems Active Problems Problem Classification Problem Date Documented Da te Episodic/Chronic Other upper respiratory infections (3 sources) Sore throat symptom; Translations: [Acute pharyngitis, unspecified] Episodic Systemic lupus erythematosus and connective tissue disorders (2 sources) Mucous membrane dryness; Translations: [Sicca syndrome, unspecified] Onset: 01-13-2020 01-13-2020 Chronic Past or Other Problems Problem Classification Problem Date Documented Date Episodic/Chronic Immunizations and screening for infectious disease (2 sources) Anti-nuclear factor positive; Translations: [Other specified abnormal immunological findings in serum] Onset: 01-13-2020 01-13-2020 Episodic Malaise and fatigue (2 sources) Malaise and fatigue; Translations: [Other malaise] Onset: 01-13-2020 01-13-2020 Episodic Results Test Name Value Interpretation Reference Range Facil ity Vital Signs Date Time Vital Sign Value Performing Clinician Tess beasley 07-24-2023 09:22-0500 Body temperature 97.11 [degF] Betty Sorenson APRN.LETTER CARRIER Work Phone: [facility] 07-24-2023 09:22-0500 Body weight 92.17 kg Betty Sorenson APRN.LETTER CARRIER Work Phone: [facility] 07-24-2023 09:22-0500 Diastolic blood pressure 74 mm[Hg] Betty Sorenson APRN.LETTER CARRIER Work Phone: [facility] 07-24-2023 09:22-0500 Heart rate 104 /min Betty Sorenson APRN.LETTER CARRIER Work Phone: [facility] 07-24-2023 09:22-0500 Respiratory rate 19 /min Betty Sorenson APRN.LETTER CARRIER Work Phone: [facility] 07-24-2023 09:22-0500 SaO2% (BldA) [Mass fraction] 98 % Betty Sorenson APRN.LETTER CARRIER Work Phone: [facility] 07-24-2023 09:22-0500 Systolic blood pressure 128 mm[Hg] Betty Sorenson APRN.LETTER CARRIER Work Phone: [facility] 06-26-2022 12:04-0400 Body temperature 98.2 [degF] Cherelle Huerta APRN.LETTER CARRIER Work Phone: [facility] 06-26-2022 12:04-0400 Body weight 85 kg Cherelle Huerta IS ARCHITECT.LETTER CARRIER Work Phone: [facility] 06-26-2022 12:04-0400 Diastolic blood pressure 80 mm[Hg] Cherelle Huerta IS ARCHITECT.LETTER CARRIER Work Phone: [facility] 06-26-2022 12:04-0400 Heart rate 94 /min Cherelle Huerta APRN.LETTER CARRIER Work Phone: [facility] 06-26-2022 12:04-0400 Respiratory rate 18 /min Cherelle Huerta APRN.CNP Work Phone: [facility] 06-26-2022 12:04-0400 SaO2% (BldA) [Mass fraction] 99 % Cherelle Huerta APRN.CNP Work Phone: [facility] 06-26-2022 12:04-0400 Systolic blood pressure 132 mm[Hg] Cherelle Huerta APRN.LETTER CARRIER Work Phone: [facility] Encounters Encounter Date Encounter Type Care Provider Facility Start: 07-24-2023 End: 07-24-2023 ambulatory ANYA PARKERSTEFANY Facility:[facility] Start: 07-24-2023 End: 07-24-2023 Patient encounter procedure Betty Sorenson APRN.CNP Work Phone: [facility] Procedures Date Procedure Procedure Detail Performing Clinician Start: 07-24-2023 STREP A MOLECULAR (POC) [facility] Provider Start: 06-26-2022 STREP A MOLECULAR (POC) Cherelle Huerta APRN.CNP Work Phone: Plan of Treatment Date Care Activity Detail Author Start: 05-05-2023 Influenza vaccination Influenza Vacc ine (#1) [facility] Start: 09-04-2022 Depression Assessment [facility] Start: 05-05-2022 Influenza vaccination INFLUENZA (#1) [facility] Start: 09-04-2021 DEPRESSION ASSESSMENT DEPRESSION ASS ESSMENT [facility] Start: 2020 HPV TESTING HPV TESTING [facility] Start: 2011 PAP TESTING PAP TESTING [facility] Start: 2009 Urine microalbumin profile [facility] Start: 2008 HEPATITIS C SCREENING HEPATITIS C SC MAICOL [facility] Start: 2008 HIV SCREENING HIV SCREENING [facility] Start: 1990 COVID-19 VACCINE (#1) COVID-19 VACCI NE (#1) [facility] Start: 1990 HEPATITIS B (1 of 3 - 3-dose series) HEPATITIS B (1 of 3 - 3-dose series) [facility] Start: 1990 Hepatitis B Vaccine (1 of 3 - 3-dose series) Hepatitis B Vaccine (1 of 3 - 3-dose series) [facility] Payers Date Payer Category Payer Medicaid [id number] 2019 Medicaid [id number] 2011 Private Health Insurance [facility] CHOICE PLUS [id number] 2011-Present [phone] [address] [place] [address] HMO [id number] 2011 Unknown [id number] Social History Date Type Detail Facility Start: 11-25-2010 Tobacco smoking stat [facility] Never smoked tobacco [facility] Work Phone: Start: 11-25-2010 Tobacco use and exposure Smokeless tobacco non-user [facility] Work Phone: Start: 06-26-2022 End: 07-24-2023 Alcohol intake Current non-drinker of alcohol (finding) [facility] Start: 1990 Sex Assigned At Not on file [facility] Start: 06-16-2022 End: 06-26-2022 Exposure to SARS-CoV-2 (event) Not sure [facility] Start: 08-12-2020 End: 07-24-2023 History of Social function [facility] Start: 08-12-2020 End: 07-24-2023 Tobacco use panel [facility] National Score (1-100), lower number is lower risk Not on file [facility] Progress note 07-24-2023 Note Date & Type Note Facility 07-24-2023 Note HNO ID: [id number] Author: Betty Sorenson APRN.LETTER CARRIER Service: ? Author Type: Nurse Practitioner Type: Progress Notes Filed: 07/24/2023 9:36 AM Note Text: CC: Patient presents with: Sore Throat: Cough, chest congestion x 2 days HPI: Radha Cabrera is a 33 year old female who presents to the office with complaint of head congestion, cough, nonproductive, and sore throat for a few days. Symptoms are worsening Associated symptoms includes sore throat. Denies fever, nausea, vomiting , and diarrhea. Treatments tried include nothing so far. with no relief of symptoms. Sick contacts: unknown. History of asthma, frequent episodes of bronchitis, chronic bronchitis, bronchiectasis or COPD: No Smoker: No Seasonal/environmental allergies: No The ROS is otherwise negative. The patient's pmh, medications, allergies, and past visits are reviewed. PHYSICAL EXAM: BP 128/74 Pulse 104 Temp 36.2 ?C (97.1 ?F) Resp 19 Wt 92.2 kg (203 lb 3.2 oz) LMP 06/04/2022 (Exact Date) SpO2 98% BMI 34.88 kg/m? General appearance: alert, cooperative, pleasant, in no acute distress Head: Normocephalic Eyes: EOM's intact, conjunctiva pink and moist, no icterus, sclera white, non-injected Ears: Right ear: External ear/canal- Normal, TM - clear with good landmarks. Left ear: External ear/canal- Normal, TM - clear with good landmarks Oropharynx:mild erythema, without exudates present Heart: Negative. RRR without obvious murmur, gallop, or rubs. No ectopy. Lungs: clear to auscultation, without rales or wheeze, good air exchange PAST MEDICAL HISTORY Diagnosis Date Asthma, exercise induced Bilateral corneal abrasions hospitalized x 2 days Fracture, Salter left foot 8th grade PAST SURGICAL HISTORY Procedure Laterality Date NONE ALLERGIES Codeine and Penicillins MEDICATIONS DULoxetine (CYMBALTA) 30 mg capsule Take 1 capsule by mouth every afternoon. VITAMIN D2 1,250 mcg (50,000 unit) capsule Take 1 capsule by mouth one time a week. FERROUS SULFATE, DRIED (IRON, DRIED, ORAL) Take 2 tablets by mouth once daily. VIT/IRON FUMARATE/FA ( VITAMIN ORAL) Take by mouth. (Patient not taking: Reported on 08/01/2021 ) FAMILY HISTORY Problem Relation Age of Onset other (Lupus?) Mother Blood Clots Father None Maternal Grandmother None Maternal Grandfather None Paternal Grandmother None Paternal Grandfather Social History Tobacco Use Smoking status: Never Smokeless tobacco: Never Substance Use Topics Alcohol use: No Drug use: No ASSESSMENT/PLAN: 1. Sore throat - ICD9: 462, ICD10: J02.9 Strep neg No other testing at this time. [id number] medications for symptom management. Potential red flag symptoms discussed with the patient. Reviewed appropriate action plan to take if red flag symptoms occur. Patient agreeable to treatment plan. Betty Sorenson APRN.ADÁN [facility] History of Present illness Narrative 07-24-2023 Betty Sorensno APRN.ADÁN - 07/24/2023 9:26 AM EST Note Date & Type Note Facility 07-24-2023 History of Presen t illness Narrative CC: Patient presents with: Sore Throat: Cough, chest congestion x 2 days HPI: Radha Cabrera is a 33 year old female who presents to the office with complaint of head congestion, cough, nonproductive, and sore throat for a few days. Symptoms are worsening Associated symptoms includes sore throat. Denies fever, nausea, vomiting , and diarrhea. Treatments tried include nothing so far. with no relief of symptoms. Sick contacts: unknown. History of asthma, frequent episodes of bronchitis, chronic bronchitis, bronchiectasis or COPD: No Smoker: No Seasonal/environmental allergies: No The ROS is otherwise negative. The patient's pmh, medications, allergies, and past visits are reviewed. PHYSICAL EXAM: BP 128/74 Pulse 104 Temp 36.2 C (97.1 F) Resp 19 Wt 92.2 kg (203 lb 3.2 oz) LMP 06/04/2022 (Exact Date) SpO2 98% BMI 34.88 kg/m General appearance: alert, cooperative, pleasant, in no acute distress Head: Normocephalic Eyes: EOM's intact, conjunctiva pink and moist, no icterus, sclera white, non-injected Ears: Right ear: External ear/canal- Normal, TM - clear with good landmarks. Left ear: External ear/canal- Normal, TM - clear with good landmarks Oropharynx:mild erythema, without exudates present Heart: Negative. RRR without obvious murmur, gallop, or rubs. No ectopy. Lungs: clear to auscultation, without rales or wheeze, good air exchange PAST MEDICAL HISTORY Diagnosis Date Asthma, exercise induced Bilateral corneal abrasions hospitalized x 2 days Fracture, Salter left foot 8th grade PAST SURGICAL HISTORY Procedure Laterality Date NONE ALLERGIES Codeine and Penicillins MEDICATIONS DULoxetine (CYMBALTA) 30 mg capsule Take 1 capsule by mouth every afternoon. VITAMIN D2 1,250 mcg (50,000 unit) capsule Take 1 capsule by mouth one time a week. FERROUS SULFATE, DRIED (IRON, DRIED, ORAL) Take 2 tablets by mouth once daily. VIT/IRON FUMARATE/FA ( VITAMIN ORAL) Take by mouth. (Patient not taking: Reported on 08/01/2021 ) FAMILY HISTORY Problem Relation Age of Onset other (Lupus?) Mother Blood Clots Father None Maternal Grandmother None Maternal Grandfather None Paternal Grandmother None Paternal Grandfather Social History Tobacco Use Smoking status: Never Smokeless tobacco: Never Substance Use Topics Alcohol use: No Drug use: No ASSESSMENT/PLAN: 1. Sore throat - ICD9: 462, ICD10: J02.9 Strep neg No other testing at this time. [id number] medications for symptom management. Potential red flag symptoms discussed with the patient. Reviewed appropriate action plan to take if red flag symptoms occur. Patient agreeable to treatment plan. Betty Sorenson APRN.ADÁN documented in this encounter [facility] Instructions 06-26-2022 Patient Instructions Note Date & Type Note Facility 06-26-2022 Instructions Cherelle Huerta APRN.ADÁN - 06/26/2022 12:25 PM EDT Rest, increase water intake Motrin or Tylenol as needed for fever or pain. Salt water gargles, chloraseptic spray or lozenges as needed for sore throat. Warm beverages, honey. Nasal saline spray as needed Cool mist humidifier at night A cold normally lasts 7-10 days. Strep is negative Tylenol (generic acetaminophen) 500 mg-2 tabs every 8 hrs. as needed for fever and aches Ibuprofen 600 mg (3-200mg tablets) every 6 hours -Sudafed (generic is fine), behind the counter, 2x30 mg tabs twice daily as needed for congestion -Mucinex (generic is fine) Guaifenesin 1200 mg twice daily to help with cough and to thin out mucus * Seek medical care immediately, call 911, go to ER if you have chest pain, difficulty breathing, shortness of breath, inability to swallow. documented in this encounter [facility] History of Present illness Narrative 06-26-2022 Cherelle Huerta APRN.ADÁN - 06/26/2022 12:11 PM EDT Note Date & Type Note Facility 06-26-2022 History of Presen t illness Narrative Subjective The history is provided by the patient and a relative. No gearman was used. HPI Radha Cabrera is a 32 year old female who presents today for CC of sore throat for sore throat, cough and congestion for 2 days. She has used some tylenol, no other treatment. Children have been ill, daughter positive strep. BP 132/80 Pulse 94 Temp 36.8 C (98.2 F) Resp 18 Wt 85 kg (187 lb 6.4 oz) LMP 06/04/2022 (Exact Date) SpO2 99% BMI 32.17 kg/m Social History Tobacco Use Smoking status: Never Smokeless tobacco: Never Substance Use Topics Alcohol use: No Drug use: No PAST MEDICAL HISTORY Diagnosis Date Asthma, exercise induced Bilateral corneal abrasions hospitalized x 2 days Fracture, Salter left foot 8th grade I have confirmed and edited as necessary, the [facility] Review of Systems Constitutional: Negative for chills, fever and malaise/fatigue. HENT: Positive for congestion and sore throat. Negative for ear pain and sinus pain. Respiratory: Positive for cough. Negative for sputum production, shortness of breath and wheezing. Cardiovascular: Negative for chest pain. Gastrointestinal: Negative for abdominal pain, diarrhea, nausea and vomiting. Musculoskeletal: Negative for myalgias. Neurological: Negative for headaches. Objective Physical Exam Vitals and nursing note reviewed. HENT: Head: Normocephalic and atraumatic. Right Ear: Tympanic membrane, ear canal and external ear normal. Left Ear: Tympanic membrane, ear canal and external ear normal. Nose: Mucosal edema, congestion and rhinorrhea present. Right Sinus: No maxillary sinus tenderness or frontal sinus tenderness. Left Sinus: No maxillary sinus tenderness or frontal sinus tenderness. Mouth/Throat: Pharynx: Uvula midline. Posterior oropharyngeal erythema (mild) present. No oropharyngeal exudate. Cardiovascular: Rate and Rhythm: Normal rate and regular rhythm. Heart sounds: Normal heart sounds. Pulmonary: Effort: Pulmonary effort is normal. Breath sounds: Normal breath sounds. Lymphadenopathy: Head: Right side of head: No submental, submandibular or tonsillar adenopathy. Left side of head: No submental, submandibular or tonsillar adenopathy. Cervical: No cervical adenopathy. Skin: General: Skin is warm and dry. Neurological: Mental Status: She is alert. Psychiatric: Mood and Affect: Affect normal. ASSESSMENT/PLAN: 1. Sore throat - ICD9: 462, ICD10: J02.9 (primary diagnosis) - suspect viral - Alere Strep Test negative, no culture pending - The patient may also use warm salt water gargles, throat lozenges and/or OTC throat spray as needed. - STREP A MOLECULAR (POC) 2. URI, acute - ICD9: 465.9, ICD10: J06.9 - Discussed viral etiology and rationale for treatment. - Symptomatic treatment with prn analgesia - Supportive care with fluids and rest Diagnosis and treatment plan were discussed and questions were answered to the patient's satisfaction. Pt acknowledged understanding of concepts and follow up plan. Specific signs and symptoms that would indicate the need for higher level of care were discussed in detail warranting prompt ER evaluation. Cherelle Huerta APRN.ADÁN documented in this encounter [facility] Evaluation note Note Date & Type Note Facility documented in this encounter [facility] Evaluation note Note Date & Type Note Facility documented in this encounter [facility] Summary Purpose Family History No Family History Records FoundNo Family History Records Found Advance Directives No Advanced Directives Records FoundNo Advanced Directives Records Found Additional Source Comments INFORMATION SOURCE (unrecogn ized section and content) DATE CREATED AUTHOR AUTHOR'S ORGANIZ ATION 07/25/2023 [facility] Source Comments (unrecognize d section and content) In the event this informatio n is protected by the Federal Confidentiality of Alcohol and Drug Abuse Patient Records regulations: The Federal rules restrict any use of the information to criminally investigate or prosecute any alcohol or drug abuse patient.[facility] the event this information is protected by the Federal Confidentiality of Alcohol and Drug Abuse Patient Records regulations: The Federal rules restrict any use of the information to criminally investigate or prosecute any alcohol or drug abuse patient.[facility] Reason for Visit (unrecogniz ed section and content) Reason Comments Sore Throat Cough, chest congest ion x 2 days Care Teams (unrecognized sec tion and content) Baker Test Relationship Specialty Start Date End Date Anya Stafford DO [address] [place] [address] PCP - General Family Medicine 06/27/19 Shimon Patrick [address] [place] [address] Ent - Otolaryngology 11/11/19 FOR RECORDS PERTAINING TO PATIENTS WHO ARE OR HAVE BEEN ENROLLED IN A CHEMICAL DEPENDENCY/SUBSTANCEABUSE PROGRAM, SOME INFORMATION MAY BE OMITTED. This clinical summary was aggregated from multiple sources. Caution should be exercised in using it in the provision of clinical care. This summary normalizes information from multiple sources, and as a consequence, information in this document may materially change the coding, format and clinical context of patient data. In addition, data may be omitted in some cases. CLINICAL DECISIONS SHOULD BE BASED ON THE PRIMARY CLINICAL RECORDS. [facility] [employer] [facility]. provides no warranty or guarantee of the accuracy or completeness of information in this document.
== END | disposition home or self-care (01) ==
LOC: MTRAD 12:45
PROVIDERS: PCP Family Medicine; Referring Provider Family Medicine; Visit Provider Family Medicine
DX: M79.662 Pain in left lower leg (principal)
CPT/HCPCS: 73590

== ENCOUNTER → 2023-10-11 | Outpatient (CLI) | payer OTHER, MEDICAID, SELFPAY ==
[2023-10-11 10:04] LABS: Absolute Lymphocyte Count 1.49 X10^3/uL (0.83-4.51); Absolute Neutrophil Count 3.8 X10^3/uL (2.0-7.7); Basophil# 0.03 X10^3/uL; Basophil% 0.5 % (0-1); Eosinophil# 0.12 X10^3/uL; Hematocrit 40.4 % (37-47); Hemoglobin 13.4 g/dL (12.0-15.0); Lymphocyte # 1.49 X10^3/ul (0.83-4.51); Lymphocyte % 24.9 % (19-41); Mean Corp Hgb Conc 33.2 g/dL (32-36); Mean Corpuscular Hgb 29.1 pg (27.0-32.0); Mean Corpuscular Volume 87.6 fL (81-99); Mean Platelet Vol. 9.6 fl (6.2-12.0); Monocyte# 0.57 X10^3/uL; Monocyte% 9.5 % (0-10); NRBC Flagged by Analyzer 0 % (0-5); Neutrophil # 3.75 X10^3/uL (2.7-7.7); Neutrophil % 62.8 % (47-70); Platelet Count 243 K/mm3 (150-450); RBC Distribution Width CV 12.8 % (11.6-14.6); Red Blood Count 4.61 M/mm3 (4.2-5.4)
--- OUTSIDE RECORDS SUMMARY | 2023-10-11 10:24 | XMS RPT_ITS | CCD ---
Author Name Unknown Address [address] [place] [address] Organization [facility] Care Team Providers Care Director Of Product Management Name Role Phone Anya Stafford DO Primary Care Provider [phone] Shimon Patrick Unavailable [phone] ANYA STAFFORD Primary Care Unavailable Allergies Allergy Classification Reported Allergen(s) Allergy Type Date of Onset Reaction(s) Facility (3 sources) Codeine; Translations: [CODEINE] Drug Allergy 11-25-2010 Mental Status Change [facility] Work Phone: (3 sources) Penicillins; Translations: [PENICILLINS] Drug Allergy 06-19-2013 Other: See Comments [facility] Work Phone: Medications Completed/Discontinued Medications Medication Drug [...] 09:22-0500 Body temperature 97.11 [degF] Betty Sorenson APRN.ACCOUNTING ADMINISTRATOR Work Phone: [facility] 07-24-2023 09:22-0500 Body weight 92.17 kg Betty Sorenson APRN.ACCOUNTING ADMINISTRATOR Work Phone: [facility] 07-24-2023 09:22-0500 Diastolic blood pressure 74 mm[Hg] Betty Sorenson APRN.ACCOUNTING ADMINISTRATOR Work Phone: [facility] 07-24-2023 09:22-0500 Heart rate 104 /min Betty Sorenson APRN.ACCOUNTING ADMINISTRATOR Work Phone: [facility] 07-24-2023 09:22-0500 Respiratory rate 19 /min Betty Sorenson APRN.ACCOUNTING ADMINISTRATOR Work Phone: [facility] 07-24-2023 09:22-0500 SaO2% (BldA) [Mass fraction] 98 % Betty Sorenson APRN.ACCOUNTING ADMINISTRATOR Work Phone: [facility] 07-24-2023 09:22-0500 Systolic blood pressure 128 mm[Hg] Betty Sorenson APRN.ACCOUNTING ADMINISTRATOR Work Phone: [facility] 06-26-2022 12:04-0400 Body temperature 98.2 [degF] Cherelle Huerta APRN.ACCOUNTING ADMINISTRATOR Work Phone: [facility] 06-26-2022 12:04-0400 Body weight 85 kg Cherelle Huerta TELEVISION ANCHOR.ACCOUNTING ADMINISTRATOR Work Phone: [facility] 06-26-2022 12:04-0400 Diastolic blood pressure 80 mm[Hg] Cherelle Huerta TELEVISION ANCHOR.ACCOUNTING ADMINISTRATOR Work Phone: [facility] 06-26-2022 12:04-0400 Heart rate 94 /min Cherelle Huerta APRN.ACCOUNTING ADMINISTRATOR Work Phone: [facility] 06-26-2022 12:04-0400 Respiratory rate 18 /min Cherelle Huerta APRN.CNP Work Phone: [facility] 06-26-2022 12:04-0400 SaO2% (BldA) [Mass fraction] 99 % Cherelel Huerta APRN.CNP Work Phone: [facility] 06-26-2022 12:04-0400 Systolic blood pressure 132 mm[Hg] Cherelle Huerta APRN.ACCOUNTING ADMINISTRATOR Work Phone: [facility] Encounters Encounter Date Encounter Type Care Provider Facility Start: 07-24-2023 End: 07-24-2023 ambulatory ANYA PARKERSTEFANY Facility:[facility] Start: 07-24-2023 End: 07-24-2023 Patient encounter procedure Betty Sorenson APRN.CNP Work Phone: [facility] Procedures Date Procedure Procedure Detail Performing Clinician Start: 07-24-2023 STREP A MOLECULAR (POC) [facility] Provider Start: 06-26-2022 STREP A MOLECULAR (POC) Cherelle Huerta APRN.CNP Work Phone: Plan of Treatment Date Care Activity Detail Author Start: 05-05-2023 Influenza vaccination Influenza Vacc ine (#1) [facility] Start: 09-04-2022 Depression Assessment [facility] Start: 05-05-2022 Influenza vaccination INFLUENZA (#1) [facility] Start: 09-04-2021 DEPRESSION ASSESSMENT DEPRESSION ASS ESSMENT [facility] Start: 2020 HPV TESTING HPV TESTING [facility] Start: 2011 PAP TESTING PAP TESTING [facility] Start: 2009 Urine microalbumin profile [facility] Start: 2008 HEPATITIS C SCREENING HEPATITIS C SC MAICOL [facility] Start: 2008 HIV SCREENING HIV SCREENING [facility] Start: 1990 COVID-19 VACCINE (#1) COVID-19 VACCI NE (#1) [facility] Start: 1990 HEPATITIS B (1 of 3 - 3-dose series) HEPATITIS B (1 of 3 - 3-dose series) [facility] Start: 1990 Hepatitis B Vaccine (1 of 3 - 3-dose series) Hepatitis B Vaccine (1 of 3 - 3-dose series) [facility] Payers Date Payer Category Payer Medicaid [id number] 2019 Medicaid [id number] 2011 Private Health Insurance [facility] CHOICE PLUS [id number] 2011-Present [phone] [address] [place] [address] HMO [id number] 2011 Unknown [id number] Social History Date Type Detail Facility Start: 11-25-2010 Tobacco smoking stat [facility] Never smoked tobacco [facility] Work Phone: Start: 11-25-2010 Tobacco use and exposure Smokeless tobacco non-user [facility] Work Phone: Start: 06-26-2022 End: 07-24-2023 Alcohol intake Current non-drinker of alcohol (finding) [facility] Start: 1990 Sex Assigned At Not on file [facility] Start: 06-16-2022 End: 06-26-2022 Exposure to SARS-CoV-2 (event) Not sure [facility] Start: 08-12-2020 End: 07-24-2023 History of Social function [facility] Start: 08-12-2020 End: 07-24-2023 Tobacco use panel [facility] National Score (1-100), lower number is lower risk Not on file [facility] Progress note 07-24-2023 Note Date & Type Note Facility 07-24-2023 Note HNO ID: [id number] Author: Betty Sorenson APRN.ACCOUNTING ADMINISTRATOR Service: ? Author Type: Nurse Practitioner Type: [...] neg No other testing at this time. [id number]-yel-[id number] medications for symptom management. Potential red flag symptoms discussed with the patient. Reviewed appropriate action plan to take if red flag symptoms occur. Patient agreeable to treatment plan. Betty Sorenson APRN.ADÁN [facility] History of Present illness Narrative 07-24-2023 Betty Sorenson APRN.ADÁN - 07/24/2023 9:26 AM EST Note [...] neg No other testing at this time. Fcsi-zzt-[id number] medications for symptom management. Potential red flag symptoms discussed with the patient. Reviewed appropriate action plan to take if red flag symptoms occur. Patient agreeable to treatment plan. Betty Sorenson APRN.ADÁN documented in this encounter [facility] Instructions 06-26-2022 Patient Instructions Note Date & [...] inability to swallow. documented in this encounter [facility] History of Present illness Narrative 06-26-2022 Cherelle Huerta APRN.ADÁN - 06/26/2022 12:11 PM EDT Note Date & Type Note Facility 06-26-2022 History of Presen t illness Narrative Subjective The history is provided by the patient and a relative. No foreign languages department chair was used. HPI Radha Cabrera is a [...] have confirmed and edited as necessary, the [facility] Review of Systems Constitutional: Negative for [...] Cherelle Huerta APRN.ADÁN documented in this encounter [facility] Evaluation note Note Date & Type Note Facility documented in this encounter [facility] Evaluation note Note Date & Type Note Facility documented in this encounter [facility] Summary Purpose Family History No Family History Records FoundNo Family History Records Found Advance Directives No Advanced Directives Records FoundNo Advanced Directives Records Found Additional Source Comments INFORMATION SOURCE (unrecogn ized section and content) DATE CREATED AUTHOR AUTHOR'S ORGANIZ ATION 07/25/2023 [facility] Source Comments (unrecognize d section and content) In the event this informatio n is protected by the Federal Confidentiality of Alcohol and Drug Abuse Patient Records regulations: The Federal rules restrict any use of the information to criminally investigate or prosecute any alcohol or drug abuse patient.[facility] the event this information is protected by the Federal Confidentiality of Alcohol and Drug Abuse Patient Records regulations: The Federal rules restrict any use of the information to criminally investigate or prosecute any alcohol or drug abuse patient.[facility] Reason for Visit (unrecogniz ed section and content) Reason Comments Sore Throat Cough, chest congest ion x 2 days Care Teams (unrecognized sec tion and content) Director Of Product Management Relationship Specialty Start Date End Date Anya Stafford DO [address] [place] [address] PCP - General Family Medicine 06/27/19 Shimon Patrick [address] [place] [address] Ent - Otolaryngology 11/11/19 FOR RECORDS PERTAINING [...] BE BASED ON THE PRIMARY CLINICAL RECORDS. [facility]. provides no warranty or guarantee of the accuracy or completeness of information in this document.
[2023-10-11 10:37] LABS: Vitamin B12 576 pg/mL (211-911); Vitamin D,25 Hydroxy 32.5 ng/mL
[2023-10-11 11:45] LABS: Ferritin 11 ng/mL (8-252); Iron 88 ug/dL (50-170); Thyroid Stim Hormone (TSH) 0.88 uIU/mL (0.358-3.74)
== END | disposition home or self-care (01) ==
LOC: MTLAB 09:15
PROVIDERS: PCP Family Medicine; Referring Provider Family Medicine; Visit Provider Family Medicine
DX: E55.9 Vitamin D deficiency, unspecified (principal); E61.1 Iron deficiency; D64.9 Anemia, unspecified; Z51.81 Encounter for therapeutic drug level monitoring
CPT/HCPCS: 36415; 82306; 82607; 82728; 83540; 84443; 85025

== ENCOUNTER → 2023-12-15 | Outpatient (CLI) | payer OTHER, SELFPAY ==
--- NOTE | 2023-12-15 09:31 | BI_ITS ---
MAMMOGRAPHY - BILATERAL DIAGNOSTIC REASON FOR EXAM: Female, 33 years old. Palpable lumps in the upper half of the right breast. PERTINENT HISTORY: Grandmother with breast cancer. TECHNIQUE: Digital bilateral breast audrey (3D mammographic acquisition) in the CC and MLO projections. 2-D mediolateral oblique (MLO) and craniocaudad (CC) views of both breasts were obtained. CAD: Full Field Digital Mammography with Computer Added Detection was performed. COMPARISON: Comparison is made with prior study dated December 05, 2016. FINDINGS: Breast Composition: The breasts are extremely dense, which lowers the sensitivity of mammography. There are no dominant masses or suspicious calcifications. No other significant abnormalities are identified. There has been no significant change since the prior study. BI/DIAG MAMM W/CAD, BILAT IMPRESSION: Stable bilateral diagnostic mammogram. With the patient''s history of a palpable lump in the upper aspect of the right breast, targeted sonographic correlation recommended. ASSESSMENT CATEGORY: BIRADS Category 0: Incomplete. Need additional imaging evaluation. A letter regarding these results will be sent to the patient by the facility within 30 days. Approximately 10% of breast cancers are not detected by mammography. A normal mammogram should not delay biopsy of a clinically suspicious abnormality. Electronically Signed: Darrell Copeland MD at 10:32 EDT ,
--- NOTE | 2023-12-15 09:32 | US_ITS ---
STUDY: ULTRASOUND BREAST - RIGHT REASON FOR EXAM: Female, 33 years old. Palpable lump in the right breast. TECHNIQUE: Axial and longitudinal images of the RIGHT breast were performed with a high resolution ultrasound transducer. # OF IMAGES: 15 COMPARISON: Comparison is made with prior mammogram done earlier today. FINDINGS: RIGHT Breast: The upper medial aspect of the left breast was examined with ultrasound. No sonographic abnormality is seen. US/Breast Limited Unilateral IMPRESSION: No sonographic abnormality is seen. ASSESSMENT CATEGORY: BIRADS Category 1: Negative. A letter regarding these results will be sent to the patient by the facility within 30 days. Electronically Signed: Darrell Copeland MD at 11:10 EDT ,
== END | disposition home or self-care (01) ==
LOC: OPBI 09:29
PROVIDERS: PCP Family Medicine; Referring Provider Family Medicine; Visit Provider Family Medicine
DX: N63.10 Unspecified lump in the right breast, unspecified quadrant (principal)
CPT/HCPCS: 76642; 77062; 77066; G0279

== ENCOUNTER → 2024-02-20 | Outpatient (CLI) | payer OTHER, SELFPAY ==
[2024-02-20 17:56] LABS: Absolute Lymphocyte Count 2.03 X10^3/uL (0.83-4.51); Absolute Neutrophil Count 5.1 X10^3/uL (2.0-7.7); Basophil# 0.05 X10^3/uL; Basophil% 0.6 % (0-1); Eosinophil# 0.15 X10^3/uL; Eosinophils% 1.9 % (0-5); Hematocrit 39.3 % (37-47); Lymphocyte # 2.03 X10^3/ul (0.83-4.51); Lymphocyte % 25.7 % (19-41); Mean Corp Hgb Conc 33.1 g/dL (32-36); Mean Corpuscular Volume 90.6 fL (81-99); Mean Platelet Vol. 10.5 fl (6.2-12.0); Monocyte# 0.59 X10^3/uL; Monocyte% 7.5 % (0-10); NRBC Flagged by Analyzer 0 % (0-5); Neutrophil # 5.07 X10^3/uL (2.7-7.7); Platelet Count 270 K/mm3 (150-450); RBC Distribution Width CV 12.8 % (11.6-14.6); RBC Distribution Width SD 41.8 fl (35.1-43.9); Red Blood Count 4.34 M/mm3 (4.2-5.4); White Blood Count 7.9 K/mm3 (4.4-11.0)
[2024-02-20 18:10] LABS: CRP < 2.90 mg/L (0.0-3.0)
[2024-02-20 18:11] LABS: Erythrocyte Sedimentation Rate 1 mm/hr (0-30)
[2024-02-20 21:18] LABS: Vitamin B12 621 pg/mL (211-911); Vitamin D,25 Hydroxy 31.8 ng/mL
== END | disposition home or self-care (01) ==
LOC: MTLAB 16:18
PROVIDERS: PCP Family Medicine; Referring Provider Family Medicine; Visit Provider Family Medicine
DX: R59.1 Generalized enlarged lymph nodes (principal); M79.10 Myalgia, unspecified site; E55.9 Vitamin D deficiency, unspecified; E53.8 Deficiency of other specified B group vitamins
CPT/HCPCS: 36415; 82306; 82607; 85025; 85652; 86140

== ENCOUNTER 2024-03-18 18:00 | Outpatient (RCR) | payer OTHER, SELFPAY ==
--- NOTE | 2024-01-02 13:29 | HP.PTEVAL ---
Patient's Visit Information Visit Information Visit Information: RADHA CABRERA is a 33 year old F referred to Physical Therapy by Dr. Anya Blake DO with a diagnosis of PELVIC PROLAPSE. Date of Evaluation: 12/11/23 Physical Therapist: Little Spence, PT, Cert MDT Visit Plan Frequency: 1x/Week Duration: 2-4 Months Plan: PF THERAPY FOR STRENGTHENING, LENGTHENING/RELAXATION AND ENDURANCE TRAINING NEEDED TO HELP MEET SET PT GOALS. URINARY INCONTINENCE AND FREQUENCY EDUCATION. HEALTHY BLADDER HABIT EDUCATION. TRAINING IN COORDINATION OF PELVIC FLOOR MUSCULATURE WITH HIP AND CORE (TRANSVERSE ABDOMINUS) MUSCULATURE. CORE STRENGTHENING TAKING DIASTASIS RECTI INTO CONSIDERATION. VALERIY LE ROM, STRETCHING AND STRENGTHENING. TRAINING IN ABDOMINAL CAVITY PRESSURE MGMT WITH ADL'S. 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 UI. LOW BACK PAIN: CENTRAL AND VALERIY LOW BACK PAIN AND VALERIY THIGH PAIN L>R. DENIES VALERIY LE NUMBNESS AND TINGLING. Present since: 2015 - UI STARTED Pain Scale: BACK: WORST 8/10, LEAST 2/10. PELVIC: WORST 3/10, LEAST 0/10. Currently: BACK: 7/10 Is it getting better, worse or staying the same: PROGRESSIVELY GETTING WORSE Commenced as a result of: UI STARTED AFTER DELIVERY OF 3RD BABY. LBP STARTED 2020 AFTER EPIDERAL FOR DELIVERY OF 4TH CHILD - COMPLICATON - TEAR - 3 FAILED BLOOD PATCHES. 2 MONTH AGO - STARTED HAVING SX'S OF PROLAPSE. FELT BULGE AND SAW IT AT HOME. Worse: DOES NOT FEEL PROLAPSE IN THE MORNINGS - GETS WORSE THE DAY PROGRESSES AND ESPECIALLY IF ON FEET A LOT. THIS IS THE SAME FOR HER PELVIC PAIN AND DIFFICULTY URINATING. LBP: SITTING, THE DAY PROGRESSES, PRLONGED STANDING, LIFTING, PUSHING, PULLING. UI - RUNNING, JUMPING, COUGHING, SNEEZING, EVENINGS. Better: BACK - HEATING PAD. PELVIC PAIN/PROLAPSE - NOTHING. UI - NOTHING. Disturbed sleep: YES - DUE TO LBP. GETTING UP TO URINATE 1-2 TIMES A NIGHT. Previous history/Previous treatment: HAS SEEN A CHIROPRACTIC SINCE 2011 FOR LOW BACK AND HIPS - SINCE HAD FIRST BABY. HAS GONE OFF AND ON NEEDED OVER THE YEARS. LAST VISIT WITH CHIROPRACTOR WAS END OF OCT 2023. SHE REPORTS SHE WENT FOR 3 WEEKS IN A ROW AND DIDN'T NOTICE A DIFFERENCE SO STOPPED GOING. HAS ALSO TREATED LBP WITH MASSAGE OFF AND ON OVER THE YEARS NEEDED WITH LAST ONE BEING ABOUT 2 MONTHS AGO - USUALLY HELPS. NO PROLAPSE OR UI TREATMENT. NO MEDICATION FOR BACK, PROLAPSE, OR UI. Gait: NORMAL How long can you delay the need to urinate: 30 MIN OR MORE Prolapse (Falling out feeling): YES - IN THE AFTERNOON AND EVENING. Frequency of Urination: AT LEAST EVERY HOUR. DRINKING 80 TO 120 OZ OF WATER A DAY. PLUS Ability to stop urine flow: PARTIALLY Ability to initiate urine stream: SOMETIMES HAS DIFFICULTY Dyspareunia: SOMETIMES Bowel Incontinence: NO Accidents: NO Unexplained weight loss: NO Imaging: NONE PMH/Recent major surgery: Autoimmune Dz/Issues. PADS: WEARING DAILY - NORMALLY JUST LEAKING AND ONE A DAY - ALWAYS #1 MENSTRAL PADS. Pain LOW BACK: Pain Intensity (Out of 10): 2 Pain Intensity Range: 2 and 8 L HIP: Pain Intensity (Out of 10): 3 Pain Intensity Range: Unrated Objective Objective: Sitting/Standing Posture: FAIR. MILD ANTERIOR PELVIC TILT AND INCREASED LORDOSIS. NO RELEVANT LATERAL SHIFT Active Correction of posture: WORSE. ABLE TO PARTIALLY CORRECT - DOES NOT MAINTAIN. Other Observations: INDEP GAIT AND TRANSFERS. Sensory deficit: VALERIY LE LIGHT TOUCH SENSATION GROSSLY INTACT AND SYMMETRICAL ROM deficit: L HIP ABD, IR AND ER TIGHTER THAN R (APPROX 20%) WITH ERP INTO HIP. MILD VALERIY HS AND GASTROC-SOLEUS TIGHTNESS. Motor deficit: VALERIY LE'S 5/5 EXCEPT R HIP GROSSLY 4/5 AND L 4-/5. INTERNAL MANUAL VAGINAL PELVIC TESTING REVEALS 3/5 STRENGTH X 5 SEC X 5 REPS. Reflexes: 2/3 VALERIY LE'S. Dural Signs: NEGATIVE VALERIY LE'S. Lumbar mvmt loss: flex - NIL ext - IDALIA - INCREASES - W R SG - NIL L SG - MIN - INCREASES - NW Core strength: POOR Palpation: TENDERNESS L5S1 REGION AND R LATERAL HIP. PATIENT REQUESTING TO DEFER PELVIC EXAM TO NEXT VISIT STATING SHE ISN'T PREPARED - THIS THERAPIST AGREEABLE. UPON COMPLETION OF INTERNAL VAGINAL PELVIC FLOOR EXAM - PATIENT DOES NOT HAVE HIGH TONE, TENDERNESS OR TRIGGER POINTS. OTHER: DIASTISIS RECTI 1 FINGER WIDTH ABOVE NAVEL AND 1.5 BELOW NAVEL. FUNCTIONAL SCREEN: Incontinence Impact Questionnaire Score: 5 Urogenital Distress Inventory Score: 14 Goals Goal 1:: DECREASE C/O BACK AND PELVIC PAIN BY AT LEAST 50% WITH ADL'S Goal Time Frame: 8-12 Weeks Goal 2:: PATIENT WILL BE ABLE TO SUCCUSSFULLY INITIATE URINE STREAM TO VOID WITHOUT PAIN OR DIFFICULTY Goal Time Frame: 8-12 Weeks Goal 3:: DECREASE URINARY LEAKAGE EPISODES TO ONE OR LESS PER DAY Goal Time Frame: 4-6 Weeks Goal 4:: NORMALIZE VOIDING FREQUENCEY TO EVERY 3-4 HOURS. Goal Time Frame: 4-6 Weeks Goal 5:: PATIENT WILL DEMONSTRATE/COMMUNICATE 10 CONSISTENT AND CONSECUTIVE 10 SECOND PELVIC FLOOR MUSCLE CONTRACTIONS TO DEMONSTRATE IMPROVED PELVIC FLOOR ENDURANCE. Goal Time Frame: 8-12 Weeks Goal 6:: PATIENT WILL BE INDEP WITH A HEP/HOME INSTRUCTIONS FOR CONTINUED IMPROVEMENT ONCE FORMAL PHYSICAL THERAPY CONCLUDES. Goal Time Frame: 8-12 Weeks Rehabilitation Potential Physical Therapy Diagnosis: THIS PATIENT PRESENTS TO PT WITH CORE, PELVIC FLOOR AND VALERIY HIP WEAKNESS, DIASTASIS RECTI, FREQUENT URINATION, STRESS UI, SYMPTOMS OF PROLAPSE, TRUNK AND L HIP STIFFNESS. Rehabilitation Potential: Good Anticipated Interventions Patient/Client Instruction: Educate patient on: Condition, Plan of Care and Risk Factors For the Purpose of:: To improve self management Therapeutic Exercise to Include: Strength training, Endurance training, Coordination, Body mechanics, Postural training, Flexibilty training, Neuromotor development and Relaxation training For the Purpose of:: To decrease pain, To improve muscle performance and motor function, To increase tolerance to activity/condition/position, To improve ability of physical actions for home/community/work/leisure and To increase flexibility/ROM Text: Thank you for the opportunity to evaluate your patient. For Medicare and Medicare HMO plans, please review the plan of care and approve it. It will need to be FAXED BACK to us at [phone] for Medicare purposes. For Medicare only, by signing this I certify the plan of care. Please let me know if there are questions or concerns regarding this plan of care. Physician Signature: Date:
== END 2024-03-18 19:00 | disposition home or self-care (01) ==
LOC: PT 18:00
PROVIDERS: PCP Family Medicine; Referring Provider Family Medicine; Visit Provider Family Medicine
DX: N81.9 Female genital prolapse, unspecified (principal)
CPT/HCPCS: 97162; 97530

== ENCOUNTER → 2024-04-04 | Outpatient (CLI) | payer OTHER, SELFPAY ==
[2024-04-05 15:09] LABS: Anti-Cardiolipin Ab, IgG, Qn < 9 GPL U/mL (0-14); Anti-Cardiolipin Ab, IgM, Qn < 9 MPL U/mL (0-12)
== END | disposition home or self-care (01) ==
LOC: MTLAB 10:35
PROVIDERS: PCP Family Medicine; Referring Provider Internal Medicine Rheumatology; Visit Provider Internal Medicine Rheumatology
DX: R76.0 Raised antibody titer (principal)
CPT/HCPCS: 36415; 86147

== ENCOUNTER → 2024-04-11 | Outpatient (CLI) | payer OTHER, SELFPAY ==
[2024-04-11 14:43] LABS: Absolute Lymphocyte Count 1.64 X10^3/uL (0.83-4.51); Absolute Neutrophil Count 7.1 X10^3/uL (2.0-7.7); Basophil# 0.03 X10^3/uL; Basophil% 0.3 % (0-1); Eosinophil# 0.15 X10^3/uL; Eosinophils% 1.5 % (0-5); Hematocrit 38.6 % (37-47); Hemoglobin 12.7 g/dL (12.0-15.0); Lymphocyte # 1.64 X10^3/ul (0.83-4.51); Lymphocyte % 16.9 % (19-41); Mean Corp Hgb Conc 32.9 g/dL (32-36); Mean Corpuscular Hgb 29.4 pg (27.0-32.0); Mean Corpuscular Volume 89.4 fL (81-99); Mean Platelet Vol. 9.9 fl (6.2-12.0); Monocyte# 0.74 X10^3/uL; Monocyte% 7.6 % (0-10); NRBC Flagged by Analyzer 0 % (0-5); Neutrophil # 7.13 X10^3/uL (2.7-7.7); Neutrophil % 73.5 % (47-70); Platelet Count 247 K/mm3 (150-450); RBC Distribution Width CV 12.8 % (11.6-14.6); RBC Distribution Width SD 41.7 fl (35.1-43.9); Red Blood Count 4.32 M/mm3 (4.2-5.4); White Blood Count 9.7 K/mm3 (4.4-11.0)
[2024-04-11 15:04] LABS: ALB/GLOB Ratio 1.1 RATIO (0.9-2.4); AST(SGOT) 18 U/L (15-37); Alanine Aminotransfer ALT/SGPT 22 U/L (13-56); Albumin, Serum 3.9 g/dL (3.2-5.0); Alkaline Phosphatase 69 U/L (45-117); Anion Gap 4 (5-15); BUN 5 mg/dL (7-18); Calcium,Total 8.9 mg/dL (8.5-10.1); Chloride 104 mmol/L (98-107); Creatinine, Serum 0.72 mg/dL (0.55-1.02); EST Glomerular Filtration Rate 99 mL/min (>60); Est Glom Filt Rate - Afr Amer 120 mL/min (>60); Globulin 3.5 g/dL (2.2-4.2); Glucose 94 mg/dL (74-106); Potassium 3.8 mmol/L (3.5-5.1); Protein, Total 7.4 g/dL (6.4-8.2); Sodium Level 137 mmol/L (136-145)
== END | disposition home or self-care (01) ==
LOC: MTLAB 13:47
PROVIDERS: PCP Family Medicine; Referring Provider Family Medicine; Visit Provider Family Medicine
DX: R10.32 Left lower quadrant pain (principal)
CPT/HCPCS: 36415; 80053; 85025

== ENCOUNTER → 2024-04-11 | Outpatient (CLI) | payer OTHER, SELFPAY ==
--- NOTE | 2024-04-11 14:22 | CT_ITS ---
INDICATION: L FLANK PAIN EXAMINATION: CT ABDOMEN AND PELVIS WITHOUT CONTRAST - CT Abdomen And Pelvis W/O Contrast Injection TECHNIQUE: Helically acquired images were obtained of the abdomen and pelvis without oral or IV contrast. A radiation dose optimization technique was used for this scan. IV Contrast dosage and agent: None. Oral contrast: None. COMPARISON: None. FINDINGS: LOWER CHEST: Lung bases are clear. No cardiomegaly or pericardial effusion. LIVER: Homogeneous. No focal mass. GALLBLADDER AND BILIARY TREE: No calcified gallstones. No gallbladder distension or wall edema. No intra- or extrahepatic biliary ductal dilation. PANCREAS: No focal cystic or solid mass. SPLEEN: Normal size without focal cystic or solid mass. ADRENAL GLANDS: No nodules. KIDNEYS AND URETERS: Mild left perinephric stranding with fullness of the left renal collecting system. No hydroureter or obstructing ureteral calculus. No nephrolithiasis bilaterally. PERITONEUM: No ascites or free air. BOWEL: Normal appendix. No stomach or bowel distension. No focal inflammatory change. LYMPH NODES: No enlarged mesenteric or retroperitoneal lymph nodes. VESSELS: Aorta is non-dilated. URINARY BLADDER: Unremarkable. REPRODUCTIVE ORGANS: No pelvic masses. ABDOMINAL WALL: Small fat-containing umbilical hernia. BONES: No acute abnormality. CT/Abdomen/Pelvis without Cont IMPRESSION: Findings suspicious for ascending left-sided UTI with possible pyelonephritis. Recent passage of a left ureteral calculus no longer present could have this appearance. Electronically Signed: Lauro Mcintosh MD at 16:12 EDT ,
== END | disposition home or self-care (01) ==
LOC: CT 14:19
PROVIDERS: PCP Family Medicine; Referring Provider Family Medicine; Visit Provider Family Medicine
DX: R10.819 Abdominal tenderness, unspecified site (principal); R10.32 Left lower quadrant pain
CPT/HCPCS: 74176

== ENCOUNTER → 2024-09-10 | Outpatient (CLI) | payer OTHER, SELFPAY ==
--- NOTE | 2024-09-10 10:11 | RAD_ITS ---
STUDY: X-RAY - LEFT KNEE REASON FOR EXAM: Female, 34 years old. Pain. TECHNIQUE: 4 views of the left knee. COMPARISON: None. FINDINGS: Normal visualized distal femur. Normal visualized proximal tibia and fibula. Normal proximal tibiofibular articulation. There is no demonstrated fracture. Normal medial femorotibial compartment. Normal lateral femorotibial compartment. Normal patellofemoral articulation. There is a small knee joint effusion. The soft tissue structures are unremarkable. RAD/Knee 4 or More Views IMPRESSION: Small knee joint effusion. No demonstrated fracture. Electronically Signed: Edmundo Mercado MD at 10:50 EST ,
== END | disposition home or self-care (01) ==
LOC: MTRAD 10:11
PROVIDERS: PCP Family Medicine; Referring Provider Physician Assistant; Visit Provider Physician Assistant
DX: M25.562 Pain in left knee (principal)
CPT/HCPCS: 73564

== ENCOUNTER → 2024-10-16 | Outpatient (CLI) | payer OTHER, SELFPAY ==
[2024-10-16 12:42] LABS: Absolute Lymphocyte Count 2.05 X10^3/uL (0.83-4.51); Absolute Neutrophil Count 4.6 X10^3/uL (2.0-7.7); Basophil# 0.03 X10^3/uL; Basophil% 0.4 % (0-1); Eosinophil# 0.19 X10^3/uL; Eosinophils% 2.6 % (0-5); Hematocrit 40.2 % (37-47); Hemoglobin 13.2 g/dL (12.0-15.0); Lymphocyte # 2.05 X10^3/ul (0.83-4.51); Lymphocyte % 27.7 % (19-41); Mean Corp Hgb Conc 32.8 g/dL (32-36); Mean Corpuscular Hgb 28.3 pg (27.0-32.0); Mean Corpuscular Volume 86.1 fL (81-99); Mean Platelet Vol. 10.3 fl (6.2-12.0); Monocyte# 0.57 X10^3/uL; Monocyte% 7.7 % (0-10); NRBC Flagged by Analyzer 0 % (0-5); Neutrophil # 4.56 X10^3/uL (2.7-7.7); Neutrophil % 61.5 % (47-70); Platelet Count 275 K/mm3 (150-450); RBC Distribution Width CV 13.4 % (11.6-14.6); RBC Distribution Width SD 41.1 fl (35.1-43.9); Red Blood Count 4.67 M/mm3 (4.2-5.4); White Blood Count 7.4 K/mm3 (4.4-11.0)
[2024-10-16 13:27] LABS: Vitamin B12 741 pg/mL (211-911); Vitamin D,25 Hydroxy 25.4 ng/mL
[2024-10-16 13:28] LABS: ALB/GLOB Ratio 1.1 RATIO (0.9-2.4); AST(SGOT) 20 U/L (15-37); Alanine Aminotransfer ALT/SGPT 30 U/L (13-56); Albumin, Serum 4.1 g/dL (3.2-5.0); Alkaline Phosphatase 55 U/L (45-117); Anion Gap 6 (5-15); BUN 11 mg/dL (7-18); BUN/Creat Ratio 13.1 RATIO (10-20); Calcium,Total 8.7 mg/dL (8.5-10.1); Chloride 103 mmol/L (98-107); Creatinine, Serum 0.84 mg/dL (0.55-1.02); EST Glomerular Filtration Rate 82 mL/min (>60); Est Glom Filt Rate - Afr Amer 100 mL/min (>60); Ferritin 6 ng/mL (8-252); Free T3 2.6 pg/mL (2.18-3.98); Globulin 3.6 g/dL (2.2-4.2); Glucose 95 mg/dL (74-106); Iron 84 ug/dL (50-170); Potassium 4.3 mmol/L (3.5-5.1); Protein, Total 7.7 g/dL (6.4-8.2); Sodium Level 134 mmol/L (136-145); Thyroid Stim Hormone (TSH) 0.904 uIU/mL (0.358-3.740)
== END | disposition home or self-care (01) ==
LOC: BFHLAB 08:51
PROVIDERS: PCP Family Medicine; Visit Provider Family Medicine
DX: D50.9 Iron deficiency anemia, unspecified (principal); E55.9 Vitamin D deficiency, unspecified; R53.83 Other fatigue; E53.8 Deficiency of other specified B group vitamins; Z51.81 Encounter for therapeutic drug level monitoring
CPT/HCPCS: 36415; 80053; 82306; 82607; 82728; 83540; 84439; 84443; 84481; 85025

== ENCOUNTER → 2025-04-04 | Outpatient (CLI) | payer OTHER, SELFPAY ==
[2025-04-04 18:40] LABS: Anion Gap 12 (5-15); BUN 5 mg/dL (4-19); BUN/Creat Ratio 6.3 RATIO (10-20); Calcium,Total 9.1 mg/dL (7.6-11.0); Carbon Dioxide 25.2 mmol/L (21.0-32.0); Chloride 102 mmol/L (98-108); Ferritin 11 ng/mL (22-378); Follicle Stimulating Hormone 5.5 mIU/mL; Glucose 93 mg/dL (70-99); Iron 27 ug/dL (50-170); Potassium 3.9 mmol/L (3.3-5.1); Vitamin D,25 Hydroxy 22.7 ng/mL (30-100)
[2025-04-06 06:39] LABS: PROGESTERONE 0.3 ng/mL (.)
[2025-04-09 11:08] LABS: Testosterone, % Free 3.72 % (0.50-2.80); Testosterone, Free 0.71 ng/dL (0.10-0.85)
== END | disposition home or self-care (01) ==
LOC: BFHLAB 15:30
PROVIDERS: PCP Family Medicine; Visit Provider Family Medicine
DX: E55.9 Vitamin D deficiency, unspecified (principal); N93.8 Other specified abnormal uterine and vaginal bleeding; Z51.81 Encounter for therapeutic drug level monitoring; D64.9 Anemia, unspecified; N92.0 Excessive and frequent menstruation with regular cycle
CPT/HCPCS: 36415; 80048; 82306; 82670; 82728; 83001; 83002; 83540; 84144; 84402; 84403